=== PATIENT | male | born 1945 | race Caucasian/White ===

== ENCOUNTER 2016-07-02 19:49 | Inpatient (IN) | payer OTHER, MEDICARE ==
[~2016-07-02] VITALS: Ht 172.7 cm; Wt 138.3 kg
--- NOTE | 2016-07-02 20:07 | NUR ---
PT BIBA FROM HOME S/P SUDDEN ONSET OF WEAKNESS AT 630PM. PT WAS HAVING BACK PAIN AND CHEST TIGHTNESS AT THE TIME. HAD 6 EPISODES OF VOMITING WITH EMS, RECEIVED 4MG ZOFRAN BY THE MEDIC. PT HAS A HX OF A STABLE ANEURYSM AND HAD AN ECHO AND SAW HIS TELETYPE OPERATOR AND WAS TOLD EVERYTHING IS STILL GOOD. PT DENIES ANY PAIN RUNNING DOWN ANY EXTREMITY. PT NOTED TO BE VERY DIAPHORETIC UPON ARRIVAL, TEMP 102.0. PT NAUSEOUS WITH SOME VOMITING UPON ARRIVAL TO ER WELL. PTS RIGHT ARM BP 144/81, LT ARM BP 147/72, SINUS TACH ON CM WITH RATE IN 130'S. DENIES ANY ABD PAIN. PTS RA SAT 91% UPON ARRIVAL, RECEIVED A DUO NEB BY THE MEDIC, WHO STATES HIS SAT WAS 80% UPON THEIR ARRIVAL. PT PLACED ON 2L O2 VIA NC, AND SATS UP TO 95% IN ROOM AT THIS TIME. PT ALSO HAD EPISODE OF INCONTINCENCE OF URINE IN ROOM WELL.
--- NOTE | 2016-07-02 20:16 | NUR ---
SANJAY Dominguez TO [place].
[2016-07-02 20:24] LABS: ABSOLUTE BASOPHIL COUNT 0 /CUMM (0.0-0.2); ABSOLUTE EOSINOPHIL COUNT 0.2 /CUMM (0.0-0.7); ABSOLUTE GRANULOCYTE CT 20.6 /CUMM (1.4-6.5); ABSOLUTE LYMPH COUNT 1.6 /CUMM (1.2-3.4); ABSOLUTE MONOCYTE COUNT 0.2 /CUMM (0.10-0.60); BASOPHIL % 0.1 % (0.0-2.0); EOSINOPHIL % 0.9 % (0-5); HEMATOCRIT 45.7 % (42-52); MEAN CORPUSCULAR HGB 29.6 PG (27.0-31.0); MEAN CORPUSCULAR HGB CONC 33.3 G/DL (33.0-37.0); MEAN CORPUSCULAR VOLUME 88.9 FL (80.0-94.0); MEAN PLATELET VOLUME 8.4 FL (7.4-10.4); PLATELET COUNT 284 /CUMM (130-400); RBC DISTRIBUTION WIDTH 14.6 % (11.5-14.5); RED BLOOD CELL CT 5.13 /CUMM (4.70-6.10); WHITE BLOOD CELL COUNT 22.6 /CUMM (4.8-10.8)
[2016-07-02 20:25] LABS: GRANULOCYTE % 91.2 % (42.2-75.2)
[2016-07-02] MEDS ORDERED: TRESIBA FL200 UNIT/1 SC (20:30)
[2016-07-02] MEDS ORDERED: VICTOZA 3-0.6 MG/0.1 SC (20:31)
[2016-07-02] MEDS ORDERED: METFORMIN HCL1000 M1 PO (20:31)
[2016-07-02] MEDS ORDERED: LISINOPRIL40 M1 PO (20:31)
[2016-07-02] MEDS ORDERED: PRAVASTATIN SOD20 M2 PO (20:32)
[2016-07-02] MEDS ORDERED: FUROSEMIDE40 M1 PO (20:32)
[2016-07-02] MEDS ORDERED: METOPROLOL SUCC50 M2 PO (20:32)
[2016-07-02] MEDS ORDERED: OCUVITE EYE +1 EACH PO (20:33)
[2016-07-02] MEDS ORDERED: CYCLOBENZAPRINE10 M1 PO (20:33)
[2016-07-02] MEDS ORDERED: MONTELUKAST SOD10 M1 PO (20:34)
[2016-07-02] MEDS ORDERED: SYMBICORT 16010.2 GM INH (20:34)
[2016-07-02] MEDS ORDERED: AUGMENTIN XR 11 EACH PO (20:35)
[2016-07-02] MEDS ORDERED: VIAGRA100 M1 PO (20:35)
--- NOTE | 2016-07-02 20:35 | ED GENERAL ADULT ---
History of Present Illness General Chief Complaint: Dyspnea (COPD, CHF, Other) Stated Complaint: "BIBA PER EMS SHORTNESS OF BREATH,CHEST TIGHTNESS" Source: patient Exam Limitations: no limitations Vital Signs & Intake/Output Vital Signs & Intake/Output Vital Signs Date Time Temp Pulse Resp B/P Pulse O2 O2 Flow FiO2 Ox Delivery Rate 07/02 2309 100.3 07/02 2225 94 Nasal 4.0L Cannula 07/02 2127 102.0 121 20 121/63 97 Nasal 4.0L Cannula 07/02 2040 102.0 07/02 2024 95 Nasal 2.0L Cannula 07/02 1955 102.0 130 20 147/72 97 Nasal 2.0L Cannula ED Intake and Output 07/03 0000 07/02 1200 Intake Total 1000 Output Total Balance 1000 Intake, IV 1000 Allergies Coded Allergies: Penicillins (HIVES 07/02/16) Reconcile Medications Amoxicillin/Potassium Clav (Augmentin XR 1,000-62.5 Tab) 1,000 MG-62.5 MG TAB.ER.12H 1 TAB PO AD DENTAL WORK (Reported) with food Budesonide/Formoterol Fumarate (Symbicort 160-4.5 Mcg Inhaler) 160 MCG-4.5 MCG/ ACTUATION HFA.AER.AD 2 PUF INH BID ASTHMA (Reported) Cyclobenzaprine HCl 10 MG TABLET 1 TAB PO QPM PRN MUSCLE RELAXER (Reported) Furosemide 40 MG TABLET 1 TAB PO DAILY DIURETIC (Reported) Insulin Aspart, Recombinant (Novolog Flexpen) 100 UNIT/ML INSULN.PEN DM ( Reported) Insulin Degludec (Tresiba Flextouch U-200) 200 UNIT/ML (3 ML) INSULN.PEN 80 UNITS SC QAM DIABETES (Reported) Liraglutide (Victoza 3-Temo) 0.6 MG/0.1 ML (18 MG/3 ML) PEN.INJCTR 1.8 MG SC DAILY DM (Reported) Lisinopril 40 MG TABLET 1 TAB PO DAILY BP (Reported) Metformin HCl 1,000 MG TABLET 1 TAB PO BID GM (Reported) Metoprolol Succinate 50 MG TAB.ER.24H 1 TAB PO DAILY BP (Reported) Montelukast Sodium 10 MG TABLET 1 TAB PO DAILY ALLERGIES (Reported) Mv-Mn/FA/Vit K1/Lycop/Lut/Zeax (Ocuvite Eye + Multi Tablet) 200 MCG-15 MCG-150 MCG-5 MG-1 MG TABLET 1 TAB PO DAILY SUPPLEMENT (Reported) Pravastatin Sodium 20 MG TABLET 1 TAB PO QPM CHOLESTEROL (Reported) Sildenafil Citrate (Viagra) 100 MG TABLET 1 TAB PO PRN ED (Reported) 1 hour before sexual activity Triage Note: PT BIBA FROM HOME S/P SUDDEN ONSET OF WEAKNESS AT 630PM. PT WAS HAVING BACK PAIN AND CHEST TIGHTNESS AT THE TIME. HAD 6 EPISODES OF VOMITING WITH EMS, RECEIVED 4MG ZOFRAN BY THE MEDIC. PT HAS A HX OF A STABLE ANEURYSM AND HAD AN ECHO AND SAW HIS BREWMASTER AND WAS TOLD EVERYTHING IS STILL GOOD. PT DENIES ANY PAIN RUNNING DOWN ANY EXTREMITY. PT NOTED TO BE VERY DIAPHORETIC UPON ARRIVAL, TEMP 102.0. PT NAUSEOUS WITH SOME VOMITING UPON ARRIVAL TO ER WELL. PTS RIGHT ARM BP 144/81, LT ARM BP 147/72, SINUS TACH ON CM WITH RATE IN 130'S. DENIES ANY ABD PAIN. PTS RA SAT 91% UPON ARRIVAL, RECEIVED A DUO NEB BY THE MEDIC, WHO STATES HIS SAT WAS 80% UPON THEIR ARRIVAL. PT PLACED ON 2L O2 VIA NC, AND SATS UP TO 95% IN ROOM AT THIS TIME. PT ALSO HAD EPISODE OF INCONTINCENCE OF URINE IN ROOM WELL. Triage Nurses Notes Reviewed? yes Onset: Abrupt Duration: constant Timing: recent history Severity: moderate Severity Numbers: 5 HPI: Patient is a 71-year-old male with a past medical history of asthma, kidney stones, cellulitis, obesity, diabetes type 2, hypertension, GERD, hyperlipidemia , known stable AAA- last ultrasound was in March showing unremarkable new changes, LOWER EXTREMITY peripheral edema currently on Lasix, who presents to the emergency room brought in by ambulance for a 45 minutes prior to arrival acute onset while at rest of shaky RIGOR chills, chest heaviness, shortness of breath and diaphoresis and low back pain. Patient was given nebulizer treatment in route. Patient does state that he's had a recent history of a three-day history of intermittent nonproductive cough made worse at night Patient denies any fever abdominal pain nausea vomiting. Patient does state his leg swelling has remained persistent in no new changes to report. Is compliant with his medications and denies any calf pain hemoptysis (PHILIP GRACE,GLO) Past History Travel History Traveled to [place] past 21 day No Medical History Any Pertinent Medical History? see below for history Cardiovascular: aortic aneurysm, hypertension, hyperlipidemia Respiratory: asthma Renal: KIDNEY STONES Endocrine: diabetes History of MRSA: No History of VRE: No History of CDIFF: No Pneumonia Vaccine: 04/27/09 Influenza Vaccine: 03/31/12 Surgical History Surgical History: non-contributory Psychosocial History Who do you live with Family Services at Home None What is your primary language Turkmen Tobacco Use: Quit >30 days ago Family History Family History, If Any: MOTHER FH: CHF (congestive heart failure) FH: diabetes mellitus FHx: breast cancer FHx: kidney cancer FATHER FH: CHF (congestive heart failure) Relation not specified for: FH: diabetes mellitus Hx Contributory? No (GLO MAY) Review of Systems Review of Systems Constitutional: Reports: see HPI, chills. EENTM: Reports: no symptoms. Respiratory: Reports: see HPI, short of breath. Cardiovascular: Reports: see HPI, chest pain. GI: Reports: see HPI. Denies: abdominal pain. Genitourinary: Reports: no symptoms, see HPI. Denies: dysuria, frequency. Musculoskeletal: Reports: see HPI, back pain. Skin: Reports: no symptoms. Neurological/Psychological: Reports: no symptoms. Hematologic/Endocrine: Reports: no symptoms. Immunologic/Allergic: Reports: no symptoms. All Other Systems: Reviewed and Negative (GLO MAY) Physical Exam Physical Exam General Appearance: mild distress, obese Comments: HEENT: Normal EENT exam, extraocular motion intact, no nystagmus. Pupils equally round and reactive to light and accommodation. Nose is atraumatic. External auditory canal and Tympanic membranes clear. Pharynx normal. No swelling or edema. Neck: Supple, no lymphadenopathy, normal range of motion without pain or tenderness Back: Bilateral para lumbar low back tenderness no central spinous tenderness no CVA tenderness. Cardiovascular: TACHYCARDIA, no murmurs rubs or gallops, normal JVP Respiratory: Chest nontender. No respiratory distress.breath sounds clear to auscultation bilaterally Abdomen: Soft, nontender nondistended, no appreciable organomegaly. Normal bowel sounds. No ascites Extremity: +3 bilateral lower extremity pitting edema no calf tenderness to palpation, normal and equal pulses. Neuro: Alert oriented x3, motor sensory normal, Skin: No appreciable rash on exposed skin, skin is warm and dry. Psych: Mood and affect is normal, memory and judgment is normal. Core Measures ACS in differential dx? Yes CVA/TIA Diagnosis: No Severe Sepsis Present: Yes BC x2: Yes Lactic Acid x2: Yes IV ABX Broad Spectrum: Yes NS/LR Started: Yes Septic Shock Present: No (PHILIP GRACE,GLO) Physical Exam Rectal: pt with exquisitely tender prostate to palpation. (LETTY ARTEAGA,ROMAN Leon) Progress Differential Diagnoses I considered the following diagnoses in my evaluation of the patient: [Sepsis, aortic aneurysm, aortic dissection, PE, pneumonia, pyelonephritis, mesenteric ischemia,] Plan of Care: Orders Procedure Date/time Status Patient Data 07/03 0000 Active LACTIC ACID 07/02 2315 Complete CULTURE,URINE 07/02 2242 Active URINALYSIS 07/02 2242 Complete US-EXT BILAT VENOUS DOPPLER 07/02 2150 Active Add-on Test (ER Only) 07/02 2030 Active RAPID VIRAL INFLUENZA A 07/02 2030 Active BLOOD CULTURE 07/02 2015 Active TROPONIN LEVEL 07/02 2015 Complete PARTIAL THROMBOPLASTIN TIME 07/02 2015 Complete PROTHROMBIN TIME 07/02 2015 Complete LIPASE 07/02 2015 Complete LACTIC ACID 07/02 2015 Complete COMPREHENSIVE METABOLIC PANEL 07/02 2015 Complete CBC WITHOUT DIFFERENTIAL 07/02 2015 Complete AMYLASE 07/02 2015 Complete D-DIMER 07/02 2009 Complete EKG 07/02 2001 Active Laboratory Tests 07/02/165: Lactic Acid 3.5 H 07/02/165: Urine Color YEL, Urine Clarity CLEAR, Urine pH 6.0, Ur Specific [place] 1.015, Urine Protein NEG, Urine Ketones NEG, Urine Nitrite NEG, Urine Bilirubin NEG, Urine Urobilinogen 0.2, Ur Leukocyte Esterase NEG, Ur Microscopic SEDIMENT EXAMINED, Urine RBC 1-3, Urine WBC RARE, Ur Epithelial Cells RARE, Urine Hemoglobin TRACE-LYSED H, Urine Glucose 500 H 07/02/162009: Anion Gap 16, Estimated GFR > 60, BUN/Creatinine Ratio 32.2 H, Glucose 314 H, Lactic Acid 4.5 H, Calcium 9.4, Total Bilirubin 0.6, AST 53, ALT 47, Alkaline Phosphatase 82, Troponin I < 0.01, Total Protein 7.9, Albumin 4.3, Globulin 3.6, Albumin/Globulin Ratio 1.2, Amylase 71, Lipase 414 H, PT 11.7, INR 1.12, APTT 23 L, D-Dimer 358 H, CBC w Diff MAN DIFF ORDERED, RBC 5.13, MCV 88.9, MCH 29.6 , RDW 14.6 H, MPV 8.4, Gran % 91.2 H, Lymphocytes % 6.9 L, Monocytes % 0.9 L , Eosinophils % 0.9, Basophils % 0.1, Absolute Granulocytes 20.6 H, Segmented Neutrophils 86 H, Band Neutrophils 5, Absolute Lymphocytes 1.6, Lymphocytes 5 L, Monocytes 1 L, Absolute Monocytes 0.2, Eosinophils 2, Absolute Eosinophils 0.2, Basophils 1, Absolute Basophils 0, Platelet Estimate VERIFIED BY SMEAR, Normocytic RBCs VERIFIED, Normochromic RBCs VERIFIED, PUBS MCHC 33.3, Fld Total RBCs Counted 100 Microbiology 07/02 2244 URINE ROUT: Urine Culture - RECD 07/02 2038 BLOOD: Blood Culture - RECD 07/02 2009 BLOOD: Blood Culture - RECD Upon initial examination patient noted to be febrile and patient had a elevated white blood cell count and which my concerns were sepsis at this time. Patient' s blood pressure was stable however due to patient's significant lower extremity swelling that I was hesitant on fluid resuscitation per [facility] policy due to significant peripheral edema and I did not want to fluid overload the patient. Patient was given 1 L of IV fluid resuscitation and IV acetaminophen however fever still persisted with ketorolac will be administered. Patient has unremarkable CT angiogram and unremarkable urine at this time there is no source of patient's infection. Patient initially was given azithromycin and Rocephin for prophylactic treatment. Blood cultures and urine cultures currently pending. Patient currently is in no apparent distress. I discussed handoff with Dr. Kim who will admit patient (PHILIP GRACE,GLO) Diagnostic Imaging: Viewed by Me: CT Scan. Discussed w/RAD: CT Scan. Radiology Impression: SEE COMMENTS Initial ED EK BPM, NSR Hand-Off Endorsed To: LETTY ARTEAGA,ROMAN Leon Comments: PATIENT: GLO MEYERS PRESENT AGE: 71 PATIENT ACCOUNT NO: [id number] : 45 LOCATION: [facility] ORDERING PHYSICIAN: GLO GRACE SERVICE DATE: 07/02/16 EXAM TYPE: CAT - CT ABD ANGIOGRAM; CTA CHEST-AORTIC DISSECTION EXAMINATION: CTA CHEST-AORTIC DISSECTION, CT ABD ANGIOGRAM CLINICAL INFORMATION: None AAA. Patient complains of chest "heaviness" radiating to the back. COMPARISON: None recent TECHNIQUE: Initial noncontrast enhanced axial scans of the chest were obtained per aortic dissection protocol. Following this, axial scans were obtained for timing purposes. This was followed by serial axial scans for CT angiography of the chest and abdomen. Coronal and sagittal reformats obtained at the acquisition workstation. DLP 1662 mGy-cm. FINDINGS: VASCULAR: Both pre and postcontrast exams of the chest reveal no evidence of aortic dissection. The thoracic aorta is normal in caliber. There is conventional branching off the aortic arch. Calcific plaques are seen in the abdominal aorta but there is no evidence of AAA. There is only mild tortuosity. Major branch vessels show ostial calcifications but all are patent. Both renal arteries show early bifurcation particularly in the left side. The iliac arteries as visualized are normal. NONVASCULAR: Numerous pulmonary nodules are present within both lungs. Some of these nodules contain calcium. Nodules are present in both lower lobes, right middle lobe, and both upper lobes. These nodules vary in size. The largest approaches 9 - [address] mm[address] performed on January 2011 mentioned the same nodules and their stability going back to 2008. None of the nodules have particularly suspicious characteristics. There is mild dependent atelectasis of both lower lobes. Multiple subcentimeter lymph nodes are present in the mediastinum including AP window, paratracheal space, and precarinal space. Coronary artery calcifications are present. There are small bilateral hilar lymph nodes. The axillae are clear of adenopathy. There is a hiatal hernia. The liver is normal in size but shows diffuse fatty infiltration. No focal masses are seen. The gallbladder and bile ducts are normal. The pancreas is normal as is the spleen and both adrenal glands. Neither kidney shows evidence of stone formation. Chronic perinephric stranding is present. There is grade 1 hydronephrosis of both kidneys and moderate fullness of both ureters. Note that the pelvis was not included on this exam. The stomach, small and large bowel are normal as visualized. There are no suspicious osseous lesions. IMPRESSION: 1. No evidence of aortic dissection. 2. No evidence of aortic aneurysm. 3. Fatty liver. 4. Mild bilateral hydroureteronephrosis. 5. Numerous pulmonary nodules varying in size. The largest measure 9 to 10 mm. These were mentioned on prior reports. (GLO MAY) Departure Departure Disposition: STILL A PATIENT Condition: Fair Referrals: KEENAN NIELSEN MD (PCP/Family) Referred to [facility] as new patient No Departure Forms: Customer Survey General Discharge Information (GLO MAY) Departure Clinical Impression Primary Impression: Sepsis Secondary Impressions: Chest pain, Fever, Leukocytosis, Prostatitis Admission Note Spoke With: KEENAN NIELSEN MD Documentation of Exam: Documentation of any treatments & extenuating circumstances including Concerns Regarding Discharge (functional status, medication knowledge or non-compliance, living conditions, etc.) that warrant an admission rather than observation: pt with sepsis, likely source is prostate... vitals stable... broad spectrum antibiotics given... pt stable in Ed x 4 hours... stable for gen med (LETTY ARTEAGA,ROMAN Leon) Critical Care Note Critical Care Note Critical Care Time: 30-74 min (GLO MAY)
[2016-07-02] MEDS ORDERED: NOVOLOG FL100 UNIT/1 SC (20:36)
--- NOTE | 2016-07-02 20:41 | NUR ---
NS INFUSING, MEDICATED WITH SOLUMEDROL, AND IV TYLENOL INFUSING (SEE MAR)
[2016-07-02 20:45] LABS: PT 11.7 SEC (9.4-12.5); PTT 23 SEC (25-37)
--- NOTE | 2016-07-02 20:53 | NUR ---
CRITICAL TEST RESULTS [id number] GLO MEYERS 71 M TESTS AND RESULTS: LACTIC 4.5 Results received and read back by: ANNABELLE OSULLIVAN Results received date and time: 07/02/162053 The following provider was notified of the results, and read the results back: SANJAY PALACIOS Notified date and time: 07/02/16 at 2054
--- NOTE | 2016-07-02 21:25 | NUR ---
PT TO AND FROM CAT.
--- NOTE | 2016-07-02 21:29 | NUR ---
PATIENT BACK FROM CAT SCAN
--- NOTE | 2016-07-02 22:38 | CT SCAN REPORT ---
EXAMINATION: CTA CHEST-AORTIC DISSECTION, CT ABD ANGIOGRAM CLINICAL INFORMATION: None AAA. Patient complains of chest "heaviness" radiating to the back. COMPARISON: None recent TECHNIQUE: Initial noncontrast enhanced axial scans of the chest were obtained per aortic dissection protocol. Following this, axial scans were obtained for timing purposes. This was followed by serial axial scans for CT angiography of the chest and abdomen. Coronal and sagittal reformats obtained at the acquisition workstation. DLP 1662 mGy-cm. FINDINGS: VASCULAR: Both pre and postcontrast exams of the chest reveal no evidence of aortic dissection. The thoracic aorta is normal in caliber. There is conventional branching off the aortic arch. Calcific plaques are seen in the abdominal aorta but there is no evidence of AAA. There is only mild tortuosity. Major branch vessels show ostial calcifications but all are patent. Both renal arteries show early bifurcation particularly in the left side. The iliac arteries as visualized are normal. NONVASCULAR: Numerous pulmonary nodules are present within both lungs. Some of these nodules contain calcium. Nodules are present in both lower lobes, right middle lobe, and both upper lobes. These nodules vary in size. The largest approaches 9 - [address] mm[address] performed on January 2011 mentioned the same nodules and their stability going back to 2008. None of the nodules have particularly suspicious characteristics. There is mild dependent atelectasis of both lower lobes. Multiple subcentimeter lymph nodes are present in the mediastinum including AP window, paratracheal space, and precarinal space. Coronary artery calcifications are present. There are small bilateral hilar lymph nodes. The axillae are clear of adenopathy. There is a hiatal hernia. The liver is normal in size but shows diffuse fatty infiltration. No focal masses are seen. The gallbladder and bile ducts are normal. The pancreas is normal as is the spleen and both adrenal glands. Neither kidney shows evidence of stone formation. Chronic perinephric stranding is present. There is grade 1 hydronephrosis of both kidneys and moderate fullness of both ureters. Note that the pelvis was not included on this exam. The stomach, small and large bowel are normal as visualized. There are no suspicious osseous lesions. IMPRESSION: 1. No evidence of aortic dissection. 2. No evidence of aortic aneurysm. 3. Fatty liver. 4. Mild bilateral hydroureteronephrosis. 5. Numerous pulmonary nodules varying in size. The largest measure 9 to 10 mm. These were mentioned on prior reports.
--- NOTE | 2016-07-02 22:57 | NUR ---
URINE SENT TO LAB.
--- NOTE | 2016-07-02 23:16 | NUR ---
REPEAT LACTIC SENT TO LAB.
--- NOTE | 2016-07-02 23:44 | NUR ---
CRITICAL TEST RESULTS [id number] GLO MEYERS 71 M TESTS AND RESULTS: LACTIC ACID 3.5 Results received and read back by: KRISTIN CARABALLO Results received date and time: 07/02/16 3644 The following provider was notified of the results, and read the results back: GLO GRACE Notified date and time: 07/02/16 at 5949
--- NOTE | 2016-07-03 00:41 | NUR ---
CURRENT TEMP 99.1
--- NOTE | 2016-07-03 01:40 | NUR ---
NS INITIATED AT 100ML/HR PER EMAR. TOLERATING WELL. PATIENT AND FAMILY INFORMED WAITING FOR ADMISSION PROCESS/ ROOM ASSIGNMENT. PATIENT PROVIDED ADDITIONAL LEMON GLYCERINE MOUTH SWABS PER REQUEST.
--- NOTE | 2016-07-03 01:46 | NUR ---
PT ADMIT TO GEN MED RM [id number]
--- NOTE | 2016-07-03 02:00 | NUR ---
PATIENT AND FAMILY INFORMED WAITING AGAIN FOR ADMISSION PROCESS AND ROOM ASSIGNMENT.
--- NOTE | 2016-07-03 02:35 | NUR ---
PATIENT AND SPOUSE INFORMED WAITING AGAIN FOR ADMISSION PROCRESS AT THIS TIME.
--- NOTE | 2016-07-03 02:57 | NUR ---
THIS RN TRIED TO CALL AND GIVE REPORT TO [facility] FOR THE PT GOING TO RM 235 AND I WAS TOLD TO CALL BACK
--- NOTE | 2016-07-03 03:10 | NUR ---
THIS RN TRIED TO CALL AND GIVE REPORT AGAIN SINCE THE BED WAS ASSIGNED AT 0145. THE FLOOR SAID THEY NEED MORE TIME AND WILL CALL BACK.
--- NOTE | 2016-07-03 03:11 | History & Physical ---
General Information and HPI MD Statement: I have seen and personally examined GLO MEYERS and documented this H&P. The patient is a 71 year old M who presented with a patient stated chief complaint of [fever and chills]. Source of Information: patient, family Exam Limitations: no limitations History of Present Illness: Patient is a 71-year-old male with past medical history of asthma, diabetes mellitus, renal stones status post lithotripsy, hypertension, hyperlipidemia, thoracic aorta aneurysm(stable), peripheral vascular disease presented to the ED today with chief complaint of sudden onset of fever and chills this afternoon accompanied by shortness of breath, diaphoresis and low back pain. Patient states that he was in his usual health until this afternoon when he suddenly started having fever and chills at home. He was nauseous and diaphoretic. By states that he was very uncomfortable and started using his nebulizer medications with no relief. His symptoms were similar to the time when he had renal stones. He denied any abdominal pain, vomiting, chest pain, palpitations, urinary or bowel symptoms. He did have some mild shortness of breath and received nebulizer treatment en route to the hospital. Denied any recent travel, recent sick contacts. Follows up with Dr. Croft as an outpatient. Vitals on arrival temperature 102, pulse 1:30, respiration 20, blood pressure 147/72, saturating 97% on nasal cannula. Pertinent labs showed a white count of 22.6 with a left shift, H&H of 15.2 /45.7 , sodium 135, potassium 4.3, lactic acid 4.5(improved to 3.5 with hydration), troponins negative, lipase 414, d-dimer 358. UA showed no infection but a glucose level of 500 JOSE DANIEL: Exquisitely tender and enlarged prostate on examination. EKG was sinus tach at 100 bpm, right bundle branch block(old), QTC 460. CTA:1. No evidence of aortic dissection. 2. No evidence of aortic aneurysm. 3. Fatty liver. 4. Mild bilateral hydroureteronephrosis. 5. Numerous pulmonary nodules varying in size. The largest measure 9 to 10 mm. These were mentioned on prior reports. Allergies/Medications Allergies: Coded Allergies: Penicillins (HIVES 07/02/16) Home Med list Amoxicillin/Potassium Clav (Augmentin XR 1,000-62.5 Tab) 1,000 MG-62.5 MG TAB.ER.12H 1 TAB PO AD DENTAL WORK (Reported) with food Budesonide/Formoterol Fumarate (Symbicort 160-4.5 Mcg Inhaler) 160 MCG-4.5 MCG/ ACTUATION HFA.AER.AD 2 PUF INH BID ASTHMA (Reported) Cyclobenzaprine HCl 10 MG TABLET 1 TAB PO QPM PRN MUSCLE RELAXER (Reported) Furosemide 40 MG TABLET 1 TAB PO DAILY DIURETIC (Reported) Insulin Aspart, Recombinant (Novolog Flexpen) 100 UNIT/ML INSULN.PEN DM ( Reported) Insulin Degludec (Tresiba Flextouch U-200) 200 UNIT/ML (3 ML) INSULN.PEN 80 UNITS SC QAM DIABETES (Reported) Liraglutide (Victoza 3-Temo) 0.6 MG/0.1 ML (18 MG/3 ML) PEN.INJCTR 1.8 MG SC DAILY DM (Reported) Lisinopril 40 MG TABLET 1 TAB PO DAILY BP (Reported) Metformin HCl 1,000 MG TABLET 1 TAB PO BID GM (Reported) Metoprolol Succinate 50 MG TAB.ER.24H 1 TAB PO DAILY BP (Reported) Montelukast Sodium 10 MG TABLET 1 TAB PO DAILY ALLERGIES (Reported) Mv-Mn/FA/Vit K1/Lycop/Lut/Zeax (Ocuvite Eye + Multi Tablet) 200 MCG-15 MCG-150 MCG-5 MG-1 MG TABLET 1 TAB PO DAILY SUPPLEMENT (Reported) Pravastatin Sodium 20 MG TABLET 1 TAB PO QPM CHOLESTEROL (Reported) Sildenafil Citrate (Viagra) 100 MG TABLET 1 TAB PO PRN ED (Reported) 1 hour before sexual activity Past History Travel History Traveled to [place] past 21 day No Medical History Cardiovascular: aortic aneurysm, hypertension, hyperlipidemia Respiratory: asthma Renal: KIDNEY STONES Endocrine: diabetes History of MRSA: No History of VRE: No History of CDIFF: No Pneumonia Vaccine: 04/27/09 Influenza Vaccine: 03/31/12 Surgical History Surgical History: non-contributory Past Family/Social History Family History Relations & Conditions if any MOTHER FH: CHF (congestive heart failure) FH: diabetes mellitus FHx: breast cancer FHx: kidney cancer FATHER FH: CHF (congestive heart failure) Relation not specified for: FH: diabetes mellitus Psychosocial History Services at Home: None Review of Systems Review of Systems Constitutional: Reports: chills, fever, malaise, weakness. EENTM: Reports: no symptoms. Cardiovascular: Reports: no symptoms. Respiratory: Reports: short of breath. GI: Reports: no symptoms. Genitourinary: Reports: no symptoms. Skin: Reports: no symptoms. Neurological/Psychological: Reports: no symptoms. Hematologic/Endocrine: Reports: no symptoms. Exam & Diagnostic Data Last 24 Hrs of Vital Signs/I&O Vital Signs Date Time Temp Pulse Resp B/P Pulse O2 O2 Flow FiO2 Ox Delivery Rate 07/03 0243 96.8 105 18 110/65 95 Room Air 07/03 0042 99.1 108 18 109/63 94 Room Air 07/03 0041 99.1 07/02 2310 100.3 07/02 2226 94 Nasal 4.0L Cannula 07/02 2127 102.0 121 20 121/63 97 Nasal 4.0L Cannula 07/02 2040 102.0 07/02 2024 95 Nasal 2.0L Cannula 07/02 1955 102.0 130 20 147/72 97 Nasal 2.0L Cannula Intake & Output 07/03 0800 07/03 0000 07/02 1600 Intake Total 1000 Output Total Balance 1000 Intake, IV 1000 Physical Exam General Appearance Alert, Oriented X3, Cooperative, Mild Distress Skin No Rashes, No Breakdown, No Significant Lesion, scar midline in the abdomen HEENT Atraumatic, PERRLA, EOMI Neck Supple, No JVD Lymphatic Cervical nl Cardiovascular Normal S1, Normal S2, tachycardia Lungs Clear to Auscultation, Normal Air Movement Abdomen Normal Bowel Sounds, Soft, No Tenderness, distended, no CVA tenderness Neurological Normal Gait, Normal Speech, Strength at 5/5 X4 Ext, Normal Tone Extremities right LE VENOUS STATIS CHANGES. 2 + PEDAL EDEMA BILATERALLY Last 24 Hrs of Labs/Andrea: Laboratory Tests 07/02/16 2315: Lactic Acid 3.5 H 07/02/165: Urine Color YEL, Urine Clarity CLEAR, Urine pH 6.0, Ur Specific [place] 1.015, Urine Protein NEG, Urine Ketones NEG, Urine Nitrite NEG, Urine Bilirubin NEG, Urine Urobilinogen 0.2, Ur Leukocyte Esterase NEG, Ur Microscopic SEDIMENT EXAMINED, Urine RBC 1-3, Urine WBC RARE, Ur Epithelial Cells RARE, Urine Hemoglobin TRACE-LYSED H, Urine Glucose 500 H 07/02/162009: Anion Gap 16, Estimated GFR > 60, BUN/Creatinine Ratio 32.2 H, Glucose 314 H, Lactic Acid 4.5 H, Calcium 9.4, Total Bilirubin 0.6, AST 53, ALT 47, Alkaline Phosphatase 82, Troponin I < 0.01, Total Protein 7.9, Albumin 4.3, Globulin 3.6, Albumin/Globulin Ratio 1.2, Amylase 71, Lipase 414 H, PT 11.7, INR 1.12, APTT 23 L, D-Dimer 358 H, CBC w Diff MAN DIFF ORDERED, RBC 5.13, MCV 88.9, MCH 29.6 , RDW 14.6 H, MPV 8.4, Gran % 91.2 H, Lymphocytes % 6.9 L, Monocytes % 0.9 L , Eosinophils % 0.9, Basophils % 0.1, Absolute Granulocytes 20.6 H, Segmented Neutrophils 86 H, Band Neutrophils 5, Absolute Lymphocytes 1.6, Lymphocytes 5 L, Monocytes 1 L, Absolute Monocytes 0.2, Eosinophils 2, Absolute Eosinophils 0.2, Basophils 1, Absolute Basophils 0, Platelet Estimate VERIFIED BY SMEAR, Normocytic RBCs VERIFIED, Normochromic RBCs VERIFIED, PUBS MCHC 33.3, Fld Total RBCs Counted 100 Microbiology 07/03 0105 URINE ROUT: Urine Culture - ORD 07/025 URINE ROUT: Urine Culture - RECD 07/02 2038 BLOOD: Blood Culture - RECD 07/02 2009 BLOOD: Blood Culture - RECD Assessment/Plan Assessment: Patient is a 71-year-old male with past medical history of asthma, diabetes mellitus, renal stones status post lithotripsy, hypertension, hyperlipidemia, thoracic aorta aneurysm(stable), peripheral vascular disease presented to the ED today with chief complaint of sudden onset of fever and chills this afternoon accompanied by shortness of breath, diaphoresis and low back pain. Vitals on arrival temperature 102, pulse 1:30, respiration 20, blood pressure 147/72, saturating 97% on nasal cannula. Pertinent labs showed a white count of 22.6 with a left shift, H&H of 15.2 /45.7 , sodium 135, potassium 4.3, lactic acid 4.5(improved to 3.5 with hydration), troponins negative, lipase 414, d-dimer 358. UA showed no infection but a glucose level of 500 JOSE DANIEL: Exquisitely tender and enlarged prostate on examination. EKG was sinus tach at 100 bpm, right bundle branch block(old), QTC 460. CTA:1. No evidence of aortic dissection. 2. No evidence of aortic aneurysm. 3. Fatty liver. 4. Mild bilateral hydroureteronephrosis. 5. Numerous pulmonary nodules varying in size. The largest measure 9 to 10 mm. These were mentioned on prior reports. Plan: 1.Sepsis secondary to ? acute prostatitis Vs Urological: With fever, tachycardia , leukocytosis with bandemia with painful prostate on digital examination. No evidence on stone on CT, chronic perinephric stranding and kidneys present. Mild bilateral hydronephrosis seen on CAT scan. Elevated lactic acid levels. -We'll admit patient to [facility] -Aggressive hydration with IV normal saline at 100 mL an hour. Patient received 2 L bolus in the ED -Patient received IV ceftriaxone in the ED. We will continues the same for now pending culture and sensitivity. -Send pancultures. -Trend lactate levels -Place Gibbs if patient starts retaining urine. At this time patient is voiding appropriately. -Pain/fever control with IV Morphine and IV Tylenol -We will keep patient nothing by mouth pending a procedures in a.m. -Urology consult with Dr. Croft in a.m. 2. Acute onset of shortness of breath: Differentials for PE versus asthma exacerbation. No PE seen on CTA. No evidence of pneumonia. No history of heart failure. -Keep oxygen saturations above 92% -[facility] nebs [id number] -Solu-Medrol 40 every 8 hours -Continue Symbicort -Pancultures pending -3 sets of troponin/EKG to rule out ACS -Check proBNP -Echocardiogram. 3. Cellulitis: Right foot cellulitis, chronic. Likely secondary to venous stasis. -leg elevation. -Compression stockings -c/w lasix for pedal edema. -Patient is pending vascular procedure -Check right lower extremity Doppler to rule out DVT. .4. History of renal stones -s/p lithotripsy x2 -f/u urology recommendations 5. Diabetes mellitus -3 times a day accuchecks -novolog sliding scale -Levemer 20 BID (half home dose) -Diabetic diet. 6. Essential hypertension c/w metoprolol, lisinopril and Lasix. 8. Arthritis -c/w Tramadol & muscle relaxant. Diabetic diet Full code Severe pain pathway DVT prophylaxis subcutaneous Lovenox As Ranked By This Provider Problem List: 1. Diabetes mellitus 2. Asthma 3. Hyperlipidemia 4. Leukocytosis 5. Fever 6. Cellulitis 7. Sepsis 8. Prostatitis Core Measures/Miscellaneous Acute Coronary Syndrome ACS Diagnosis: No Cerebrovascular Accident CVA/TIA Diagnosis: No Congestive Heart Failure CHF Diagnosis: No Venous Thromboembolism VTE Risk Factors: Age > 40, Obesity VTE Prophylaxis Ordered Inpt: Mechanical (ALPS/TEDS) No Mech VTE prophylaxis d/t: No contraindications No VTE Pharm Prophylaxis d/t: No contraindications VTE Diagnosis: No VTE Type: NONE VTE Confirmed by (Test): NONE Severe Sepsis Severe Sepsis Present: Yes BC x2: Yes Lactic Acid x2: Yes IV ABX Broad Spectrum: Yes NS/LR Started: Yes Septic Shock Septic Shock Present: No Miscellaneous Documentation Attending Case Discussed With: KEENAN NIELSEN MD Primary Care Physician: KEENAN NIELSEN MD Patient sees these Specialists DR TRACY Level of Patient Care: General Medicine
--- NOTE | 2016-07-03 03:38 | NUR ---
REPORT CALLED TO JENIFFER MORTENSEN ON . HOUSE STAFF PAGED TO INQUIRE ABOUT MCCURDY CATHETER ORDER.
--- NOTE | 2016-07-03 03:43 | NUR ---
PATIENT FAMILY UPSET REGARDING TIME TO BRING PATIENT TO ROOM UPSTAIRS, PATIENT AND FAMILY INFORMED THAT REPORT HAS BEEN GIVEN. ALL ORDER HAVE BEEN CLARIFIED W/ ADMITTING MDS. REFUSING FLU SWAB, HOUSE STAFF REPORTING D/CING ORDER. PER HOUSE STAFF REGARDING MCCURDY ORDER, HOUSE STAFF REPORTS TO BLADDER SCAN THE PATIENT AND IF THE BLADDER SCANNER READS MORE THAN 300ML RETAINED THAN PLACE THE MCCURDY, IF NOT THAN DO NOT PLACE MCCURDY. FAMILY AWARE THAT BLADDER SCAN NEEDS TO BE OBTAINED FROM ICU, REFUSING TO WAIT, WOULD LIKE TO BE TRANSPORTED TO FLOOR AND THEN HAVE THE BLADDER SCAN DONE. JENIFFER MORTENSEN ON FLOOR AWARE. HOUSE STAFF ALSO MADE AWARE OF LACTIC ORDERS FOR 0300 AND 0354, PER HOUSE STAFF, ONLY NEED TO OBTAIN ONE LACTIC ACID AND THE OTHER ORDER WILL BE D/SIDDHARTH. FAMILY VERY UPSET, VERBALLY DEESCALATED AT THIS TIME. ELIOT QUINTERO AT BEDSIDE OBTAINING LACTIC ACID AT THIS TIME THEN PATIENT WILL BE TRANSPORTED TO FLOOR. HOUSE STAFF THIS RN SPOKE TO- HERMILA MALDONADO (BEEPER [id number]).
[2016-07-03 04:28] VITALS: BP 110/70
[2016-07-03 07:37] VITALS: BP 120/76
--- NOTE | 2016-07-03 08:11 | NUR ---
PT ARRIVED TO FLOOR AT 0421 VIA STRETCHER. A&OX3, ON RA LUNGS CLEAR, IV TO RFA #20 FROM 07/02/16 WITH NS @100ML/HR, VSS, NO C/O NAUSEA/VOMITTING OR PAIN. RT LOWER EXTREMITY ERYTHEMA +2 EDEMA, AMBULATED INDEPENDENTLY. VOIDS TO URINAL POST VOID RESIDUAL 20ML. PT NPO FOR POSSIBLE UROLOGY PROCEDURE, ORIENTED TO ROOM AND STAFF, CALL SYED HAMM. WILL CONTINUE TO MONITOR.
--- NOTE | 2016-07-03 10:21 | Admission Certification ---
Admission Certification Certification Statement - As attending physician, I certify that at the time of - admission, based on clinical presentation, severity of - symptoms, need for further diagnostic testing and - therapeutic interventions, and risk of adverse outcomes - without in-hospital treatment, in my clinical assessment, - this patient requires an acute hospital stay for a minimum - of two nights or longer. I have also considered psychsocial - factors such as support system, advanced age, financial - issues, cognitive issues, and failed out-patient treatments, - past re-admission history, safety of patient, and lack of - compliance as applicable. Specific rationale supporting this admission is: Shaking chills , sepsis probable origin is the prostate.
--- NOTE | 2016-07-03 10:24 | PN- Att Addend ---
Attending Addendum Attending Brief Note 71-year-old white male with many comorbidities 1 of them is diabetes, last evening started having severe shaking chills, called the ambulance was brought into the emergency room with a fever patient had all the cultures obtained lab work x-rays and scans and rectal exam the prostate was very tender urine was started on IV antibiotics and also his lactic acid was elevated. Patient was admitted. This morning lab called that to cultures positive for gram-positive organisms. Will obtain an infectious disease consult also urology follow-up with monitor his sugars closely Laboratory Tests 07/03 07/03 07/03 07/02 0941 [id number] 0354 2315 Chemistry Lactic Acid (0.7 - 2.1 mmol/L) Pending 4.8 H Cancelled 3.5 H Hematology CBC w Diff Pending WBC Pending RBC Pending Hgb Pending Hct Pending MCV Pending MCH Pending RDW Pending Plt Count Pending MPV Pending PUBS MCHC Pending 07/02 2255 Urines Urine Color (YEL,AMB,STR) YEL Urine Clarity (CLEAR) CLEAR Urine pH (5.0 - 8.0) 6.0 Ur Specific [place] (1.001 - 1.035) 1.015 Urine Protein (NEG,<30 MG/DL) NEG Urine Ketones (NEG) NEG Urine Nitrite (NEG) NEG Urine Bilirubin (NEG) NEG Urine Urobilinogen (0.1 - 1.0 EU/dl) 0.2 Ur Leukocyte Esterase (NEG) NEG Ur Microscopic SEDIMENT EXAMINED Urine RBC (0 - 5 /HPF) 1-3 Urine WBC (0 - 2 /HPF) RARE Ur Epithelial Cells (NONE,FEW) RARE Urine Hemoglobin (NEG) TRACE-LYSED H Urine Glucose (N MG/DL) 500 H 07/02 2009 Chemistry Sodium (137 - 145 mmol/L) 135 L Potassium (3.5 - 5.1 mmol/L) 4.3 Chloride (98 - 107 mmol/L) 93 L Carbon Dioxide (22 - 30 mmol/L) 26 Anion Gap (5 - 16) 16 BUN (9 - 20 mg/dL) 29 H Creatinine (0.7 - 1.2 mg/dL) 0.9 Estimated GFR (>60 ml/min) > 60 BUN/Creatinine Ratio (7 - 25 %) 32.2 H Glucose (65 - 99 mg/dL) 314 H Lactic Acid (0.7 - 2.1 mmol/L) 4.5 H Calcium (8.4 - 10.2 mg/dL) 9.4 Total Bilirubin (0.2 - 1.3 mg/dL) 0.6 AST (17 - 59 U/L) 53 ALT (21 - 72 U/L) 47 Alkaline Phosphatase (< 127 U/L) 82 Troponin I (<0.11 ng/ml) < 0.01 Qxg-C-Efkrjziylce Pept (<125 pg/mL) 59.4 Total Protein (6.3 - 8.2 g/dL) 7.9 Albumin (3.5 - 5.0 g/dL) 4.3 Globulin (1.9 - 4.2 gm/dL) 3.6 Albumin/Globulin Ratio (1.1 - 2.2 %) 1.2 Amylase (30 - 110 U/L) 71 Lipase (23 - 300 U/L) 414 H Coagulation PT (9.4 - 12.5 SEC) 11.7 INR (0.90 - 1.17) 1.12 APTT (25 - 37 SEC) 23 L D-Dimer (70 - 232 ng/ml) 358 H Hematology CBC w Diff MAN DIFF ORDERED WBC (4.8 - 10.8 /CUMM) 22.6 H RBC (4.70 - 6.10 /CUMM) 5.13 Hgb (14.0 - 18.0 G/DL) 15.2 Hct (42 - 52 %) 45.7 MCV (80.0 - 94.0 FL) 88.9 MCH (27.0 - 31.0 PG) 29.6 RDW (11.5 - 14.5 %) 14.6 H Plt Count (130 - 400 /CUMM) 284 MPV (7.4 - 10.4 FL) 8.4 Gran % (42.2 - 75.2 %) 91.2 H Lymphocytes % (20.5 - 51.1 %) 6.9 L Monocytes % (1.7 - 9.3 %) 0.9 L Eosinophils % (0 - 5 %) 0.9 Basophils % (0.0 - 2.0 %) 0.1 Absolute Granulocytes (1.4 - 6.5 /CUMM) 20.6 H Segmented Neutrophils (42.2 - 75.2 %) 86 H Band Neutrophils (0.0 - 5.0 %) 5 Absolute Lymphocytes (1.2 - 3.4 /CUMM) 1.6 Lymphocytes (20.5 - 51.1 %) 5 L Monocytes (1.7 - 9.3 %) 1 L Absolute Monocytes (0.10 - 0.60 /CUMM) 0.2 Eosinophils (0 - 5.0 %) 2 Absolute Eosinophils (0.0 - 0.7 /CUMM) 0.2 Basophils (0.0 - 2.0 %) 1 Absolute Basophils (0.0 - 0.2 /CUMM) 0 Platelet Estimate (ADEQUATE) VERIFIED BY SMEAR Normocytic RBCs VERIFIED Normochromic RBCs VERIFIED PUBS MCHC (33.0 - 37.0 G/DL) 33.3 Other Body Source Fld Total RBCs Counted (%) 100
[2016-07-03 11:08] LABS: ABSOLUTE BASOPHIL COUNT 0 /CUMM (0.0-0.2); ABSOLUTE EOSINOPHIL COUNT 0 /CUMM (0.0-0.7); ABSOLUTE GRANULOCYTE CT 26.4 /CUMM (1.4-6.5); ABSOLUTE LYMPH COUNT 0.5 /CUMM (1.2-3.4); ABSOLUTE MONOCYTE COUNT 0.8 /CUMM (0.10-0.60); BASOPHIL % 0 % (0.0-2.0); EOSINOPHIL % 0 % (0-5); GRANULOCYTE % 95.2 % (42.2-75.2); HEMATOCRIT 43.2 % (42-52); MEAN CORPUSCULAR HGB 29.4 PG (27.0-31.0); MEAN CORPUSCULAR HGB CONC 33.1 G/DL (33.0-37.0); MEAN CORPUSCULAR VOLUME 88.9 FL (80.0-94.0); MEAN PLATELET VOLUME 9.3 FL (7.4-10.4); PLATELET COUNT 256 /CUMM (130-400); RBC DISTRIBUTION WIDTH 14.5 % (11.5-14.5); RED BLOOD CELL CT 4.85 /CUMM (4.70-6.10); WHITE BLOOD CELL COUNT 27.7 /CUMM (4.8-10.8)
--- NOTE | 2016-07-03 13:26 | Cons- Urology ---
General Information and HPI Consulting Request Date of Consult: 07/03/16 Requested By: KEENAN NIELSEN MD Reason for Consult: bilateral mild hydronephrosis Source of Information: patient, radiology Exam Limitations: no limitations History of Present Illness: Patient is a 71-year-old male with past medical history of asthma, DM, kidney stones s/p ESWL, hypertension, hyperlipidemia, thoracic aorta aneurysm(stable), peripheral vascular disease presented to the ED with chief complaint of sudden onset of fever and chills accompanied by shortness of breath, diaphoresis, nausea and low back pain. He was very uncomfortable and used his nebulizer medications with no improvement. His symptoms were similar to the time when he had kidney stones. He stopped taking the KCitrate under his PMDs advice as his K level was too high. He denied any abdominal pain, vomiting, chest pain, palpitations, urinary or bowel symptoms. He has seen Dr. Croft as an outpatient and was previously a patient of Dr. Martinez. Allergies/Medications Allergies: Coded Allergies: Penicillins (HIVES 07/02/16) Home Med List: Amoxicillin/Potassium Clav (Augmentin XR 1,000-62.5 Tab) 1,000 MG-62.5 MG TAB.ER.12H 1 TAB PO AD DENTAL WORK (Reported) with food Budesonide/Formoterol Fumarate (Symbicort 160-4.5 Mcg Inhaler) 160 MCG-4.5 MCG/ ACTUATION HFA.AER.AD 2 PUF INH BID ASTHMA (Reported) Cyclobenzaprine HCl 10 MG TABLET 1 TAB PO QPM PRN MUSCLE RELAXER (Reported) Furosemide 40 MG TABLET 1 TAB PO DAILY DIURETIC (Reported) Insulin Aspart, Recombinant (Novolog Flexpen) 100 UNIT/ML INSULN.PEN DM ( Reported) Insulin Degludec (Tresiba Flextouch U-200) 200 UNIT/ML (3 ML) INSULN.PEN 80 UNITS SC QAM DIABETES (Reported) Liraglutide (Victoza 3-Temo) 0.6 MG/0.1 ML (18 MG/3 ML) PEN.INJCTR 1.8 MG SC DAILY DM (Reported) Lisinopril 40 MG TABLET 1 TAB PO DAILY BP (Reported) Metformin HCl 1,000 MG TABLET 1 TAB PO BID GM (Reported) Metoprolol Succinate 50 MG TAB.ER.24H 1 TAB PO DAILY BP (Reported) Montelukast Sodium 10 MG TABLET 1 TAB PO DAILY ALLERGIES (Reported) Mv-Mn/FA/Vit K1/Lycop/Lut/Zeax (Ocuvite Eye + Multi Tablet) 200 MCG-15 MCG-150 MCG-5 MG-1 MG TABLET 1 TAB PO DAILY SUPPLEMENT (Reported) Pravastatin Sodium 20 MG TABLET 1 TAB PO QPM CHOLESTEROL (Reported) Sildenafil Citrate (Viagra) 100 MG TABLET 1 TAB PO PRN ED (Reported) 1 hour before sexual activity Current Medications: Current Medications Sig/Marky Start time Last Medication Dose Route Stop Time Status Admin Acetaminophen 325 MG Q6P PRN 07/03 0200 AC PO Acetaminophen 1,000 MG ONCE ONE 07/02 2044 DC 07/02 N/A 1 UNIT IV 07/02 Acetaminophen 0 .STK-MED ONE 07/02 2034 DC IV Albuterol Sulfate 3 ML BID 07/03 1251 AC 07/03 INH 1252 Albuterol Sulfate 3 ML ONCE ONE 07/02 2199 DC 07/02 INH 07/02 Albuterol Sulfate 3 ML ONCE ONE 07/02 2044 DC 07/02 INH 07/02 Azithromycin 500 MG ONCE ONE 07/02 2099 DC 07/02 Sodium Chloride 250 ML IV 07/02 Budesonide/ 2 PUF BID 07/03 1000 AC 07/03 Formoterol Fumarate INH 103 Ceftriaxone Sodium 1,000 MG 2100 07/03 2099 AC IV Ceftriaxone Sodium 0 .STK-MED ONE 07/02 2126 DC .ROUTE Ceftriaxone Sodium 1,000 MG ONCE ONE 07/02 2099 DC 07/02 IV 07/02 Cyclobenzaprine HCl 10 MG AT BEDTIME NEED.. 07/03 0330 AC PO Dextrose/Sodium 1,000 ML Q13H 07/03 0815 AC 07/03 Chloride IV 0834 Enoxaparin Sodium 40 MG DAILY 07/03 1000 AC 07/03 SC 1040 Furosemide 40 MG DAILY 07/03 1000 CAN PO Insulin Aspart 0 TIDAC 07/03 0800 DC SC Insulin Detemir 20 UNITS BID 07/03 1000 AC 07/03 SC 1040 Insulin Human Regular 0 Q6 07/03 0812 AC 07/03 SC 1247 Ketorolac 30 MG Q4-6 PRN PRN 07/03 0315 DC Tromethamine IV Ketorolac 0 .STK-MED ONE 07/03 0012 DC Tromethamine .ROUTE Ketorolac 30 MG ONCE ONE 07/02 2345 DC Tromethamine IV 07/02 2346 Lisinopril 40 MG DAILY 07/03 1000 AC 07/03 PO 1040 Methylprednisolone 40 MG Q8 07/03 0600 AC 07/03 IV 0729 Methylprednisolone 125 MG ONCE ONE 07/02 2045 DC 07/02 IV 07/02 204 204 Methylprednisolone 0 .STK-MED ONE 07/02 2034 DC .ROUTE Metoprolol Succinate 50 MG DAILY 07/03 1000 AC 07/03 PO 1040 Montelukast Sodium 10 MG DAILY 07/03 1000 AC 07/03 PO 1040 Morphine Sulfate 2 MG Q4P PRN 07/03 0345 AC IV Non-Formulary 0 SEE ADMIN CRITERIA 07/03 0330 CAN Medication ANY Pravastatin Sodium 20 MG QPM 07/03 2200 AC PO Sodium Chloride 1,000 ML Q10H 07/03 0100 DC 07/03 IV 0140 Sodium Chloride 1,000 ML BOLUS ONE 07/02 2044 DC 07/02 IV 07/02 Past History Medical History Blood Transfusion Hx: Yes Neurological: NONE EENT: NONE Cardiovascular: aortic aneurysm, hypertension, hyperlipidemia Respiratory: asthma Gastrointestinal: NONE Hepatic: NONE Renal: KIDNEY STONES Psychiatric: NONE Endocrine: diabetes Blood Disorders: NONE Cancer(s): NONE 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 Home Who Do You Live With? spouse Services at Home: None Primary Language: Tajik Smoking Status: Former Smoker Illicit Drug Use: denies illicit drug use Living Will? unknown Power of Arc Air Operator/HCP? unknown Functional Ability ADLs Independent: dressing, eating, toileting, bathing. Ambulation: independent IADLs Independent: shopping, housework, finances, telephone, transportation, medication admin. Needs Assist: food prep. Employment History Retired? unknown Review of Systems Review of Systems: as above. Review of Systems Constitutional: Reports: see HPI. EENTM: Reports: no symptoms. Cardiovascular: Reports: see HPI. Respiratory: Reports: see HPI. GI: Reports: no symptoms. Genitourinary: Reports: frequency. Musculoskeletal: Reports: no symptoms. Skin: Reports: no symptoms. Neurological/Psychological: Reports: no symptoms. Hematologic/Endocrine: Reports: no symptoms. Immunologic/Allergic: Reports: no symptoms. Exam & Diagnostic Data Vital Signs and I&O Vital Signs Date Time Temp Pulse Resp B/P Pulse O2 O2 Flow FiO2 Ox Delivery Rate 07/03 1253 Room Air Room Air 07/03 1040 80 122/68 07/03 1040 80 122/68 07/03 0737 98.2 73 20 120/76 96 Nasal 5.0L Cannula 07/03 0428 98.0 104 20 110/70 94 Room Air 07/03 0243 96.8 105 18 110/65 95 Room Air 07/03 0042 99.1 108 18 109/63 94 Room Air 07/03 0041 99.1 07/02 2310 100.3 07/02 2226 94 Nasal 4.0L Cannula 07/02 2127 102.0 121 20 121/63 97 Nasal 4.0L Cannula 07/02 2040 102.0 07/02 2024 95 Nasal 2.0L Cannula 07/02 195 102.0 130 20 147/72 97 Nasal 2.0L Cannula Intake & Output 07/03 1600 07/03 0800 07/03 0000 07/02 1600 07/02 0800 07/02 0000 Intake Total 250 1000 Output Total 500 Balance -250 1000 Intake, IV 250 1000 Number 0 Bowel Movements Output, Urine 500 Patient 138.346 kg Weight Physical Exam: awake and alert receiving nebulizer treatment sitting up in a chair. abd soft, ND/NT no rose in place. Rectal deferred as he had one yesterday with hospitalist NO C/C/E. Physical Exam General Appearance: well developed/nourished, no apparent distress, alert, awake , comfortable Head: atraumatic, normal appearance Eyes: Bilateral: normal appearance. Ears, Nose, Throat: normal ENT inspection Neck: normal inspection Respiratory: no respiratory distress Cardiovascular: regular rate/rhythm Gastrointestinal: soft, non-tender Rectal: deferred Back: normal inspection Extremities: normal inspection Neurologic/Psych: awake, alert, oriented x 3 Cranial Nerves: normal hearing, normal speech Skin: intact, normal color, warm/dry Last 24 Hours of Labs: Laboratory Tests 07/03 07/03 07/03 1050 0941 0402 Chemistry Sodium (137 - 145 mmol/L) 135 L Potassium (3.5 - 5.1 mmol/L) 4.7 Chloride (98 - 107 mmol/L) 93 L Carbon Dioxide (22 - 30 mmol/L) 25 Anion Gap (5 - 16) 16 BUN (9 - 20 mg/dL) 28 H Creatinine (0.7 - 1.2 mg/dL) 1.0 Estimated GFR (>60 ml/min) > 60 BUN/Creatinine Ratio (7 - 25 %) 28.0 H Lactic Acid (0.7 - 2.1 mmol/L) 2.9 H 4.8 H Troponin I (<0.11 ng/ml) < 0.01 Hematology CBC w Diff MAN DIFF ORDERED WBC (4.8 - 10.8 /CUMM) 27.7 H RBC (4.70 - 6.10 /CUMM) 4.85 Hgb (14.0 - 18.0 G/DL) 14.3 Hct (42 - 52 %) 43.2 MCV (80.0 - 94.0 FL) 88.9 MCH (27.0 - 31.0 PG) 29.4 RDW (11.5 - 14.5 %) 14.5 Plt Count (130 - 400 /CUMM) 256 MPV (7.4 - 10.4 FL) 9.3 Gran % (42.2 - 75.2 %) 95.2 H Lymphocytes % (20.5 - 51.1 %) 1.9 L Monocytes % (1.7 - 9.3 %) 2.9 Eosinophils % (0 - 5 %) 0 Basophils % (0.0 - 2.0 %) 0 L Absolute Granulocytes (1.4 - 6.5 /CUMM) 26.4 H Segmented Neutrophils (42.2 - 75.2 %) 82 H Band Neutrophils (0.0 - 5.0 %) 14 H Absolute Lymphocytes (1.2 - 3.4 /CUMM) 0.5 L Lymphocytes (20.5 - 51.1 %) 3 L Monocytes (1.7 - 9.3 %) 1 L Absolute Monocytes (0.10 - 0.60 /CUMM) 0.8 H Absolute Eosinophils (0.0 - 0.7 /CUMM) 0 Absolute Basophils (0.0 - 0.2 /CUMM) 0 Platelet Estimate (ADEQUATE) VERIFIED BY SMEAR Normocytic RBCs VERIFIED Normochromic RBCs VERIFIED PUBS MCHC (33.0 - 37.0 G/DL) 33.1 07/03 07/02 07/02 0354 2315 2255 Chemistry Lactic Acid (0.7 - 2.1 mmol/L) Cancelled 3.5 H Urines Urine Color (YEL,AMB,STR) YEL Urine Clarity (CLEAR) CLEAR Urine pH (5.0 - 8.0) 6.0 Ur Specific [place] (1.001 - 1.035) 1.015 Urine Protein (NEG,<30 MG/DL) NEG Urine Ketones (NEG) NEG Urine Nitrite (NEG) NEG Urine Bilirubin (NEG) NEG Urine Urobilinogen (0.1 - 1.0 EU/dl) 0.2 Ur Leukocyte Esterase (NEG) NEG Ur Microscopic SEDIMENT EXAMINED Urine RBC (0 - 5 /HPF) 1-3 Urine WBC (0 - 2 /HPF) RARE Ur Epithelial Cells (NONE,FEW) RARE Urine Hemoglobin (NEG) TRACE-LYSED H Urine Glucose (N MG/DL) 500 H 07/02 2009 Chemistry Sodium (137 - 145 mmol/L) 135 L Potassium (3.5 - 5.1 mmol/L) 4.3 Chloride (98 - 107 mmol/L) 93 L Carbon Dioxide (22 - 30 mmol/L) 26 Anion Gap (5 - 16) 16 BUN (9 - 20 mg/dL) 29 H Creatinine (0.7 - 1.2 mg/dL) 0.9 Estimated GFR (>60 ml/min) > 60 BUN/Creatinine Ratio (7 - 25 %) 32.2 H Glucose (65 - 99 mg/dL) 314 H Lactic Acid (0.7 - 2.1 mmol/L) 4.5 H Calcium (8.4 - 10.2 mg/dL) 9.4 Total Bilirubin (0.2 - 1.3 mg/dL) 0.6 AST (17 - 59 U/L) 53 ALT (21 - 72 U/L) 47 Alkaline Phosphatase (< 127 U/L) 82 Troponin I (<0.11 ng/ml) < 0.01 Hva-M-[id number] Pept (<125 pg/mL) 59.4 Total Protein (6.3 - 8.2 g/dL) 7.9 Albumin (3.5 - 5.0 g/dL) 4.3 Globulin (1.9 - 4.2 gm/dL) 3.6 Albumin/Globulin Ratio (1.1 - 2.2 %) 1.2 Amylase (30 - 110 U/L) 71 Lipase (23 - 300 U/L) 414 H Coagulation PT (9.4 - 12.5 SEC) 11.7 INR (0.90 - 1.17) 1.12 APTT (25 - 37 SEC) 23 L D-Dimer (70 - 232 ng/ml) 358 H Hematology CBC w Diff MAN DIFF ORDERED WBC (4.8 - 10.8 /CUMM) 22.6 H RBC (4.70 - 6.10 /CUMM) 5.13 Hgb (14.0 - 18.0 G/DL) 15.2 Hct (42 - 52 %) 45.7 MCV (80.0 - 94.0 FL) 88.9 MCH (27.0 - 31.0 PG) 29.6 RDW (11.5 - 14.5 %) 14.6 H Plt Count (130 - 400 /CUMM) 284 MPV (7.4 - 10.4 FL) 8.4 Gran % (42.2 - 75.2 %) 91.2 H Lymphocytes % (20.5 - 51.1 %) 6.9 L Monocytes % (1.7 - 9.3 %) 0.9 L Eosinophils % (0 - 5 %) 0.9 Basophils % (0.0 - 2.0 %) 0.1 Absolute Granulocytes (1.4 - 6.5 /CUMM) 20.6 H Segmented Neutrophils (42.2 - 75.2 %) 86 H Band Neutrophils (0.0 - 5.0 %) 5 Absolute Lymphocytes (1.2 - 3.4 /CUMM) 1.6 Lymphocytes (20.5 - 51.1 %) 5 L Monocytes (1.7 - 9.3 %) 1 L Absolute Monocytes (0.10 - 0.60 /CUMM) 0.2 Eosinophils (0 - 5.0 %) 2 Absolute Eosinophils (0.0 - 0.7 /CUMM) 0.2 Basophils (0.0 - 2.0 %) 1 Absolute Basophils (0.0 - 0.2 /CUMM) 0 Platelet Estimate (ADEQUATE) VERIFIED BY SMEAR Normocytic RBCs VERIFIED Normochromic RBCs VERIFIED PUBS MCHC (33.0 - 37.0 G/DL) 33.3 Other Body Source Fld Total RBCs Counted (%) 100 Imaging Results: CT scan of abdomen without kidney stones. mild bilateral hydronephrosis, no obstructive process appreciated Assessment/Plan Assessment/Plan 71yo male with multiple med problems with mild bilateral hydronephrosis with no signs of any stones on CT scan. He has no complaints of flank pain. Recommend renal US and bladder US to see if ureteral jets. May be physiologic phenomenon for pt. His creatinine is WNL. He should follow up as an outpt for his kidney stones issues since he stopped the Kcitrate as well. Consult Acknowledgment - Thank you for your consult request.
--- NOTE | 2016-07-03 14:00 | Cons- Infect Disease ---
General Information and HPI Consulting Request Date of Consult: 07/03/16 Requested By: KEENAN INELSEN MD Reason for Consult: Positive blood cultures for gram-positive cocci in pairs and chains Source of Information: patient, family, old records History of Present Illness: This is a 71-year-old man with diabetes, asthma, osteoarthritis, status post bilateral knee replacements, nephrolithiasis, status post lithotripsies and a right ureteral stent in the past for a staghorn calculus, and recurrent lower extremity cellulitis, with chronic venous stasis changes, particularly of the right lower extremity, admitted on July 02 after presenting to the emergency room with the acute onset of fevers and chills with vomiting, chest tightness, shortness of breath, lower back pain and weakness. On admission he was febrile to 102 with an O2 sat of 91% on room air. Examination in the emergency room apparently revealed an exquisitely tender and enlarged prostate. Laboratory data revealed a white blood cell count of 23,000, BUN/creatinine 29 and 0.9, lactic acid 4.5, lipase 414, with normal liver enzymes, coags normal. Urinalysis 1-3 RBC/rare WBC's. CTA of the chest and abdomen revealed mild bilateral hydroureteronephrosis, with chronic perinephric stranding, with no evidence of kidney stones; a normal gallbladder, bile ducts and pancreas; multiple pulmonary nodules, unchanged from previous exams. He was begun on Ceftriaxone and Azithromycin as well as Solumedrol. He has defervesced and feels improved today, with no further nausea or vomiting and, at present, he reports no pain. He has had no urinary complaints and denies dysuria, urgency or perineal discomfort. He reports no change in his lower extremities, with chronic mild discomfort in the right leg. He reports no abdominal pain and has had no cough. Allergies/Medications Allergies: Coded Allergies: Penicillins (HIVES 07/02/16) Home Med List: Amoxicillin/Potassium Clav (Augmentin XR 1,000-62.5 Tab) 1,000 MG-62.5 MG TAB.ER.12H 1 TAB PO AD DENTAL WORK (Reported) with food Budesonide/Formoterol Fumarate (Symbicort 160-4.5 Mcg Inhaler) 160 MCG-4.5 MCG/ ACTUATION HFA.AER.AD 2 PUF INH BID ASTHMA (Reported) Cyclobenzaprine HCl 10 MG TABLET 1 TAB PO QPM PRN MUSCLE RELAXER (Reported) Furosemide 40 MG TABLET 1 TAB PO DAILY DIURETIC (Reported) Insulin Aspart, Recombinant (Novolog Flexpen) 100 UNIT/ML INSULN.PEN DM ( Reported) Insulin Degludec (Tresiba Flextouch U-200) 200 UNIT/ML (3 ML) INSULN.PEN 80 UNITS SC QAM DIABETES (Reported) Liraglutide (Victoza 3-Temo) 0.6 MG/0.1 ML (18 MG/3 ML) PEN.INJCTR 1.8 MG SC DAILY DM (Reported) Lisinopril 40 MG TABLET 1 TAB PO DAILY BP (Reported) Metformin HCl 1,000 MG TABLET 1 TAB PO BID GM (Reported) Metoprolol Succinate 50 MG TAB.ER.24H 1 TAB PO DAILY BP (Reported) Montelukast Sodium 10 MG TABLET 1 TAB PO DAILY ALLERGIES (Reported) Mv-Mn/FA/Vit K1/Lycop/Lut/Zeax (Ocuvite Eye + Multi Tablet) 200 MCG-15 MCG-150 MCG-5 MG-1 MG TABLET 1 TAB PO DAILY SUPPLEMENT (Reported) Pravastatin Sodium 20 MG TABLET 1 TAB PO QPM CHOLESTEROL (Reported) Sildenafil Citrate (Viagra) 100 MG TABLET 1 TAB PO PRN ED (Reported) 1 hour before sexual activity Past History Travel History Traveled to [place] past 21 day No Medical History Blood Transfusion Hx: Yes Neurological: NONE EENT: NONE Cardiovascular: aortic aneurysm (thoracic), hypertension, hyperlipidemia Respiratory: asthma Gastrointestinal: GERD Hepatic: NONE Renal: nephrolithiasis Musculoskeletal: osteoarthritis Psychiatric: NONE Endocrine: diabetes Blood Disorders: NONE Cancer(s): NONE CARPENTER RAILCAR/Reproductive: NONE History of MRSA: No History of VRE: No History of CDIFF: No Isolation History: Standard Pneumonia Vaccine: 04/27/09 Influenza Vaccine: 03/31/12 Surgical History Surgical History: knee replacement (bilateral), ESWL, status post right rotator cuff surgery, status post removal of a heel spur, status post hernia repair Family History Relations & Conditions If Any: MOTHER FH: CHF (congestive heart failure) FH: diabetes mellitus FHx: breast cancer FHx: kidney cancer FATHER FH: CHF (congestive heart failure) Relation not specified for: FH: diabetes mellitus Psychosocial History Where Do You Live? Home Who Do You Live With? spouse Services at Home: None Primary Language: Ivorian Smoking Status: Former Smoker Illicit Drug Use: denies illicit drug use Living Will? unknown Power of Dry Ice Maker/HCP? unknown Functional Ability ADLs Independent: dressing, eating, toileting, bathing. Ambulation: independent IADLs Independent: shopping, housework, finances, telephone, transportation, medication admin. Needs Assist: food prep. Review of Systems Review of Systems Cardiovascular: Reports: peripheral edema. Respiratory: Denies: cough. GI: Denies: abdominal pain, diarrhea. Genitourinary: Reports: no symptoms. All Other Systems: Reviewed and Negative Exam & Diagnostic Data Last 24 Hrs of Vital Signs/I&O Vital Signs Date Time Temp Pulse Resp B/P Pulse O2 O2 Flow FiO2 Ox Delivery Rate 07/03 1253 Room Air Room Air 07/03 1040 80 122/68 07/03 1040 80 122/68 07/03 0737 98.2 73 20 120/76 96 Nasal 5.0L Cannula 07/03 0428 98.0 104 20 110/70 94 Room Air 07/03 0243 96.8 105 18 110/65 95 Room Air 07/03 0042 99.1 108 18 109/63 94 Room Air 07/03 0041 99.1 07/02 2310 100.3 07/02 2226 94 Nasal 4.0L Cannula 07/028 102.0 121 20 121/63 97 Nasal 4.0L Cannula 07/02 204 102.0 07/02 2024 95 Nasal 2.0L Cannula 07/02 1956 102.0 130 20 147/72 97 Nasal 2.0L Cannula Intake & Output 07/03 1600 07/03 0800 07/03 0000 Intake Total 250 1000 Output Total 500 Balance -250 1000 Intake, IV 250 1000 Number 0 Bowel Movements Output, Urine 500 Patient 305 lb Weight Physical Exam Other Physical Findings: He is awake and alert in no acute distress. MAXIMUM TEMPERATURE 102. Skin reveals no rash. HEENT exam is negative. Neck is supple with no adenopathy. Lungs are clear. Heart regular rhythm with no murmur. Abdomen is obese, soft, mildly tender on palpation over the right upper quadrant and epigastrium, with no guarding or rebound, positive bowel sounds. Back no CVA tenderness. Extremities bilateral lower extremity edema, right greater than left, with chronic venous stasis changes to the right lower extremity, with mild localized erythema and tenderness; 1+ pulses bilaterally. Neuro is without focality. Last 24 Hours of Lab Results: Laboratory Tests 07/03 07/03 07/03 1050 0941 0402 Chemistry Sodium (137 - 145 mmol/L) 135 L Potassium (3.5 - 5.1 mmol/L) 4.7 Chloride (98 - 107 mmol/L) 93 L Carbon Dioxide (22 - 30 mmol/L) 25 Anion Gap (5 - 16) 16 BUN (9 - 20 mg/dL) 28 H Creatinine (0.7 - 1.2 mg/dL) 1.0 Estimated GFR (>60 ml/min) > 60 BUN/Creatinine Ratio (7 - 25 %) 28.0 H Lactic Acid (0.7 - 2.1 mmol/L) 2.9 H 4.8 H Troponin I (<0.11 ng/ml) < 0.01 Hematology CBC w Diff MAN DIFF ORDERED WBC (4.8 - 10.8 /CUMM) 27.7 H RBC (4.70 - 6.10 /CUMM) 4.85 Hgb (14.0 - 18.0 G/DL) 14.3 Hct (42 - 52 %) 43.2 MCV (80.0 - 94.0 FL) 88.9 MCH (27.0 - 31.0 PG) 29.4 RDW (11.5 - 14.5 %) 14.5 Plt Count (130 - 400 /CUMM) 256 MPV (7.4 - 10.4 FL) 9.3 Gran % (42.2 - 75.2 %) 95.2 H Lymphocytes % (20.5 - 51.1 %) 1.9 L Monocytes % (1.7 - 9.3 %) 2.9 Eosinophils % (0 - 5 %) 0 Basophils % (0.0 - 2.0 %) 0 L Absolute Granulocytes (1.4 - 6.5 /CUMM) 26.4 H Segmented Neutrophils (42.2 - 75.2 %) 82 H Band Neutrophils (0.0 - 5.0 %) 14 H Absolute Lymphocytes (1.2 - 3.4 /CUMM) 0.5 L Lymphocytes (20.5 - 51.1 %) 3 L Monocytes (1.7 - 9.3 %) 1 L Absolute Monocytes (0.10 - 0.60 /CUMM) 0.8 H Absolute Eosinophils (0.0 - 0.7 /CUMM) 0 Absolute Basophils (0.0 - 0.2 /CUMM) 0 Platelet Estimate (ADEQUATE) VERIFIED BY SMEAR Normocytic RBCs VERIFIED Normochromic RBCs VERIFIED PUBS MCHC (33.0 - 37.0 G/DL) 33.1 07/03 07/02 07/02 0354 2315 2255 Chemistry Lactic Acid (0.7 - 2.1 mmol/L) Cancelled 3.5 H Urines Urine Color (YEL,AMB,STR) YEL Urine Clarity (CLEAR) CLEAR Urine pH (5.0 - 8.0) 6.0 Ur Specific Guthrie (1.001 - 1.035) 1.015 Urine Protein (NEG,<30 MG/DL) NEG Urine Ketones (NEG) NEG Urine Nitrite (NEG) NEG Urine Bilirubin (NEG) NEG Urine Urobilinogen (0.1 - 1.0 EU/dl) 0.2 Ur Leukocyte Esterase (NEG) NEG Ur Microscopic SEDIMENT EXAMINED Urine RBC (0 - 5 /HPF) 1-3 Urine WBC (0 - 2 /HPF) RARE Ur Epithelial Cells (NONE,FEW) RARE Urine Hemoglobin (NEG) TRACE-LYSED H Urine Glucose (N MG/DL) 500 H 07/02 2009 Chemistry Sodium (137 - 145 mmol/L) 135 L Potassium (3.5 - 5.1 mmol/L) 4.3 Chloride (98 - 107 mmol/L) 93 L Carbon Dioxide (22 - 30 mmol/L) 26 Anion Gap (5 - 16) 16 BUN (9 - 20 mg/dL) 29 H Creatinine (0.7 - 1.2 mg/dL) 0.9 Estimated GFR (>60 ml/min) > 60 BUN/Creatinine Ratio (7 - 25 %) 32.2 H Glucose (65 - 99 mg/dL) 314 H Lactic Acid (0.7 - 2.1 mmol/L) 4.5 H Calcium (8.4 - 10.2 mg/dL) 9.4 Total Bilirubin (0.2 - 1.3 mg/dL) 0.6 AST (17 - 59 U/L) 53 ALT (21 - 72 U/L) 47 Alkaline Phosphatase (< 127 U/L) 82 Troponin I (<0.11 ng/ml) < 0.01 Nzk-Z-Gzohjyriaka Pept (<125 pg/mL) 59.4 Total Protein (6.3 - 8.2 g/dL) 7.9 Albumin (3.5 - 5.0 g/dL) 4.3 Globulin (1.9 - 4.2 gm/dL) 3.6 Albumin/Globulin Ratio (1.1 - 2.2 %) 1.2 Amylase (30 - 110 U/L) 71 Lipase (23 - 300 U/L) 414 H Coagulation PT (9.4 - 12.5 SEC) 11.7 INR (0.90 - 1.17) 1.12 APTT (25 - 37 SEC) 23 L D-Dimer (70 - 232 ng/ml) 358 H Hematology CBC w Diff MAN DIFF ORDERED WBC (4.8 - 10.8 /CUMM) 22.6 H RBC (4.70 - 6.10 /CUMM) 5.13 Hgb (14.0 - 18.0 G/DL) 15.2 Hct (42 - 52 %) 45.7 MCV (80.0 - 94.0 FL) 88.9 MCH (27.0 - 31.0 PG) 29.6 RDW (11.5 - 14.5 %) 14.6 H Plt Count (130 - 400 /CUMM) 284 MPV (7.4 - 10.4 FL) 8.4 Gran % (42.2 - 75.2 %) 91.2 H Lymphocytes % (20.5 - 51.1 %) 6.9 L Monocytes % (1.7 - 9.3 %) 0.9 L Eosinophils % (0 - 5 %) 0.9 Basophils % (0.0 - 2.0 %) 0.1 Absolute Granulocytes (1.4 - 6.5 /CUMM) 20.6 H Segmented Neutrophils (42.2 - 75.2 %) 86 H Band Neutrophils (0.0 - 5.0 %) 5 Absolute Lymphocytes (1.2 - 3.4 /CUMM) 1.6 Lymphocytes (20.5 - 51.1 %) 5 L Monocytes (1.7 - 9.3 %) 1 L Absolute Monocytes (0.10 - 0.60 /CUMM) 0.2 Eosinophils (0 - 5.0 %) 2 Absolute Eosinophils (0.0 - 0.7 /CUMM) 0.2 Basophils (0.0 - 2.0 %) 1 Absolute Basophils (0.0 - 0.2 /CUMM) 0 Platelet Estimate (ADEQUATE) VERIFIED BY SMEAR Normocytic RBCs VERIFIED Normochromic RBCs VERIFIED PUBS MCHC (33.0 - 37.0 G/DL) 33.3 Other Body Source Fld Total RBCs Counted (%) 100 Last 24 Hours of Andrea Results: Blood cultures 2 July 02 positive for gram-positive cocci in pairs and chains Urine culture July 02 negative Diagnostic Data Recent Imaging Findings: CTA of the chest and abdomen revealed mild bilateral hydroureteronephrosis, with chronic perinephric stranding, with no evidence of kidney stones; a normal gallbladder, bile ducts and pancreas; multiple pulmonary nodules, unchanged from previous exams. Assessment/Plan Assessment/Plan Impression: This is a 71-year-old man with diabetes, asthma, recurrent cellulitis of the lower extremities and nephrolithiasis, status post lithotripsies and right ureteral stent in the past, admitted on July 02 with the acute onset of fevers , chills, chest tightness, shortness of breath, nausea with vomiting and weakness, found to be febrile with an exquisitely tender prostate reported on exam, with a leukocytosis and with blood cultures today reported positive for gram-positive cocci in pairs and chains. Possible sources of sepsis include the genitourinary tract, including the prostate, given the report of an exquisitely tender prostate on exam, though he reports no urinary or perineal symptoms and his urinalysis is unremarkable, a biliary process, given the epigastric and right upper quadrant tenderness and the elevated lipase, cellulitis of the right lower extremity, given the mild erythema and tenderness, though this is reportedly chronic. His antibiotics should be adjusted to cover Enterococcus, particularly if this turns out to be urinary or biliary, and the identification of the blood isolate should help identify the source of infection. He has been evaluated by Urology, with recommendations noted. Suggestion: 1. Right upper quadrant ultrasound (can do with the renal/bladder ultrasound suggested by Urology) 2. Would taper steroids 3. Follow-up final cultures 4. Discontinue Ceftriaxone and Azithromycin 5. Begin Vancomycin 1.5 grams IV every 12 hours pending above Consult Acknowledgment - Thank you for your consult request.
--- NOTE | 2016-07-03 15:41 | ULTRASOUND REPORT ---
EXAMINATION: US TRIPLEX LOWER EXTREMITY, BILATERAL CLINICAL INFORMATION: Bilateral leg swelling. COMPARISON: None. TECHNIQUE: Color-flow triplex imaging with spectral analysis and compression Doppler were performed on the bilateral lower extremities. FINDINGS: Respiratory variation, normal compression and augmented flow are noted throughout the bilateral lower extremities. The visualized common femoral vein, superficial femoral vein, profunda femoral vein, popliteal vein and mid calf peroneal and posterior tibial venous segments show no evidence of deep venous thrombosis. There is no Casey's cyst. There is a 2.7 x 1.1 x 2.1 cm lymph node superior to the right femoral vein. IMPRESSION: No evidence of deep venous thrombosis involving the bilateral lower extremities.
--- NOTE | 2016-07-03 15:53 | ULTRASOUND REPORT ---
EXAMINATION: US ABDOMEN COMPLETE CLINICAL INFORMATION: Infection in kidneys/bladder/liver. COMPARISON: CT 07/02/2016 TECHNIQUE: Real-time imaging of the abdominal viscera. FINDINGS: PANCREAS: Obscured by overlying bowel gas. ABDOMINAL AORTA: Obscured by overlying bowel gas. INFERIOR VENA CAVA: Obscured by overlying bowel gas. LIVER: The liver demonstrates increased echogenicity consistent with steatosis. No focal lesion or intrahepatic biliary duct dilatation. GALLBLADDER: The gallbladder is physiologically distended without evidence of stones, sludge, polyps, wall thickening or pericholecystic fluid. COMMON BILE DUCT: Normal in caliber measuring 0.3 cm in diameter. RIGHT KIDNEY: No hydronephrosis. No renal calculi or focal parenchymal lesions. The kidney measures 13.8 cm in maximum dimension. LEFT KIDNEY: No hydronephrosis. No renal calculi or focal parenchymal lesions. The kidney measures 12.3 cm in maximum dimension. SPLEEN: Normal. The spleen measures 12.2 cm in maximum dimension. FREE FLUID: None. BLADDER: Partially distended, with a volume of approximately 175 mL. Bilateral ureteral jets are not visualized. IMPRESSION: Hepatic steatosis. No acute findings identified.
--- NOTE | 2016-07-03 16:35 | NUR ---
1000- PT IVF ORDERED FOR 200 ML/HR. VERIFIED RATE WITH DR. OSBORNE DUE TO CONCERNS OF FLUID OVERLOAD. PT WITH BLE EDEMA +2 AND [address] A[address]OMEN. PER DR. OSBORNE, RATE TO REMAIN 200 ML/HR AND LASIX TO BE DISCONTINUED DUE TO SEPSIS. 1230- PT COMPLAINING OF SOB. NO CRACKLES NOTED, BUT LUNGS DIMINISHED AT BASES. RESPIRATORY CALLED. DR. OSBORNE CALLED REGARDING SOB. IVF RATE DECREASED TO 75 ML/HR. RESPIRATORY TREATMENT ADMINISTERD. WILL CONTINUE TO MONITOR. 12:40- REQUESTED DR. OSBORNE TO ASSESS PT AT BEDSIDE AND TO COMMUNICATE BLOOD CULTURE RESULTS AND PLAN OF CARE. 13:00- DR. KENNEY AND DR. OSBORNE AT PT BEDSIDE.
[2016-07-03 17:38] VITALS: BP 110/60
[2016-07-03 22:45] VITALS: BP 122/60
--- NOTE | 2016-07-04 06:25 | PN- Housestaff ---
Subjective Follow-up For: Sepsis Cellulitis Subjective: Patient seen and examined at bedside. No acute events overnight. Alert, awake and oriented x 3. He in no acute apparent distress wthout any acute complaints, eating breakfast. Denies shortness of breath, cough, headache, fever, chills, chest pain, palpitations, nausea, vomiting, diarrhea, blurred/double vision, dizziness/lightheadedness. Review of Systems Constitutional: Reports: see HPI. Objective Last 24 Hrs of Vital Signs/I&O Vital Signs Date Time Temp Pulse Resp B/P Pulse O2 O2 Flow FiO2 Ox Delivery Rate 07/04 1441 97.8 91 20 134/68 95 07/04 0923 105 122/70 07/04 0923 105 122/70 07/04 0856 93 Room Air 07/04 0643 97.4 94 20 126/80 92 Room Air 07/03 2245 98.7 103 20 122/60 91 Room Air 07/03 1934 92 Room Air 07/03 1738 98.1 102 20 110/60 92 Room Air Intake & Output 07/04 1600 07/04 0800 07/04 0000 Intake Total 400 400 Output Total 200 Balance 400 200 Intake, IV 300 300 Intake, Oral 100 100 Output, Urine 200 Physical Exam General Appearance: Alert, Oriented X3, Cooperative, No Acute Distress Other Physical Findings: Skin Mild erythema/edema/TTP in the RLE HEENT Atraumatic, PERRLA, EOMI, Mucous Membr. moist/pink Neck Supple Cardiovascular No m/r/g, regular rhythm and rate Lungs Clear to Auscultation, Normal Air Movement Abdomen Normal Bowel Sounds, Soft, No Tenderness Neurological Normal Speech Extremities Trace edema bilaterally Current Medications: Current Medications Sig/Marky Start time Last Medication Dose Route Stop Time Status Admin Acetaminophen 325 MG Q6P PRN 07/03 0200 AC PO Albuterol Sulfate 3 ML BID 07/03 1251 AC 07/04 INH 0854 Budesonide/ 2 PUF BID 07/03 1000 AC 07/04 Formoterol Fumarate INH 0931 Cefazolin Sodium 2 GM IQ8 07/04 1600 AC N/A 1 UNIT IV Cyclobenzaprine HCl 10 MG AT BEDTIME NEED.. 07/03 0330 AC 07/03 PO 2154 Dextrose/Sodium 1,000 ML Q13H 07/03 0815 DC 07/03 Chloride IV 0834 Enoxaparin Sodium 40 MG DAILY 07/03 1000 AC 07/04 SC 0922 Insulin Aspart 0 TIDAC 07/03 1700 AC 07/04 SC 1207 Insulin Detemir 20 UNITS BID 07/03 1000 AC 07/04 SC 0922 Insulin Human Regular 0 Q6 07/03 0812 DC 07/03 SC 1247 Lisinopril 40 MG DAILY 07/03 1000 AC 07/04 PO 0923 Methylprednisolone 40 MG DAILY 07/05 1000 AC IV 07/05 1800 Methylprednisolone 40 MG Q12 07/03 2200 DC 07/04 IV 0922 Metoprolol Succinate 50 MG DAILY 07/03 1000 AC 07/04 PO 0923 Montelukast Sodium 10 MG DAILY 07/03 1000 AC 07/04 PO 0923 Morphine Sulfate 2 MG Q4P PRN 07/03 0345 AC IV Patient Medication 1 ED .STK-MED ONE 07/04 1400 [facility] Teaching ED 07/04 1401 Pravastatin Sodium 20 MG QPM 07/03 2200 AC 07/03 PO 2155 Vancomycin HCl 1,500 MG Q12 07/03 1426 DC 07/04 Sodium Chloride 250 ML IV 1104 Last 24 Hrs of Lab/Andrea Results Last 24 Hrs of Labs/Mics: Laboratory Tests 07/04/16 0700: Anion Gap 16, Estimated GFR > 60, BUN/Creatinine Ratio 34.4 H, CBC w Diff NO MAN DIFF REQ, RBC 4.70, MCV 88.2, MCH 29.5, RDW 15.4 H, MPV 9.3, Gran % 91.9 H , Lymphocytes % 3.4 L, Monocytes % 4.5, Eosinophils % 0, Basophils % 0.2, Absolute Granulocytes 22.9 H, Absolute Lymphocytes 0.8 L, Absolute Monocytes 1.1 H, Absolute Eosinophils 0, Absolute Basophils 0.1, PUBS MCHC 33.4 07/03/16 2145: Troponin I < 0.01 07/03/16 214: Lactic Acid 1.8 Assessment/Plan Assessment: Patient is a 71-year-old male with past medical history of asthma, diabetes mellitus, renal stones status post lithotripsy, hypertension, hyperlipidemia, thoracic aorta aneurysm(stable), peripheral vascular disease presented to the ED today with chief complaint of sudden onset of fever and chills this afternoon accompanied by shortness of breath, diaphoresis and low back pain. # Sepsis most likely 2/2 cellulitis and bacteremia Vitals on arrival temperature 102, pulse 130, respiration 20. CBC significant for leukocytosis of 22.6 with a left shift. Elevated lactic acid levels. JOSE DANIEL remarkable for exquisitely tender and enlarged prostate on examination. Thus his sepsis was most attributable to prostatitis initially. Given the blood cultures growing group B strep, however, cellulitis ias deemed a more likely source of the infection. In any case, it was agreed by the urologist Dr. Garcia that there are no urological interventions warranted for the patient. Sepsis has resolved with IVF resuscitation and anmicrobial therapy. He is currently hemodynamically stable and afebrile with no signs of sepsis. * Cont to monitor for signs of infection and hemodynamic instability * Appreciate ID recs * Oxygen support and IV hydration as needed * Cont antibiotic therapy as discussed below # Bacteremia Most likely from the cellulitis in RLE. Bcx from 07/03 currently growing GBS. * Discontinue Vancyomycin (day 2) * Start Cefazolin 2mg IV q8H per ID rec * Cont to follow blood cultures for identification, C&S . # Cellulitis: Right foot cellulitis, chronic. Likely secondary to venous stasis. Venous doppler negative. * Cefazolin 2mg IV q8H as per above-mentioned plan * Cont leg elevation. * Compression stockings * Resume Lasix for pedal edema. # Asthma exacerbation Patient presented with an acute onset of dyspnea. Differentials also included PE initially. No PE seen on CTA. No evidence of pneumonia. No history of heart failure. * Keep oxygen saturations above 92% * TRC nebs [id number] * Continue steroid taper - decrease to SoluMedrol 40mg daily * Continue Symbicort * Pancultures pending # History of renal stones s/p lithotripsy x2 * Consulted by urology, follow recs * Outpatient f/u per uro rec # Diabetes mellitus * Novolog SSI with accuchekcs * Increase Levemer to 25U BID (takes 80U daily at home) * Diabetic diet # Essential hypertension * c/w metoprolol, lisinopril and Lasix. # Arthritis * Tramadol & muscle relaxant. - Diabetic diet - Mild pain pathway - DVT prophylaxis subcutaneous Lovenox - Full code Problem List: 1. Arthritis 2. Asthma 3. Diabetes mellitus 4. Essential hypertension 5. Hyperlipidemia 6. Staghorn calculus 7. Leukocytosis 8. Fever 9. Cellulitis 10. Sepsis 11. Chest pain 12. Prostatitis Pain Ratin Pain Location: 0 Pain Goal: Remain pain free Pain Plan: Mild pathway Tomorrow's Labs & Rationales: CBC
[2016-07-04 06:43] VITALS: BP 126/80
[2016-07-04 08:12] LABS: ABSOLUTE BASOPHIL COUNT 0.1 /CUMM (0.0-0.2); ABSOLUTE EOSINOPHIL COUNT 0 /CUMM (0.0-0.7); ABSOLUTE GRANULOCYTE CT 22.9 /CUMM (1.4-6.5); ABSOLUTE LYMPH COUNT 0.8 /CUMM (1.2-3.4); ABSOLUTE MONOCYTE COUNT 1.1 /CUMM (0.10-0.60); BASOPHIL % 0.2 % (0.0-2.0); EOSINOPHIL % 0 % (0-5); HEMATOCRIT 41.5 % (42-52); MEAN CORPUSCULAR HGB 29.5 PG (27.0-31.0); MEAN CORPUSCULAR HGB CONC 33.4 G/DL (33.0-37.0); MEAN CORPUSCULAR VOLUME 88.2 FL (80.0-94.0); MEAN PLATELET VOLUME 9.3 FL (7.4-10.4); RBC DISTRIBUTION WIDTH 15.4 % (11.5-14.5); WHITE BLOOD CELL COUNT 24.9 /CUMM (4.8-10.8)
[2016-07-04 09:22] LABS: GRANULOCYTE % 91.9 % (42.2-75.2); PLATELET COUNT 264 /CUMM (130-400)
--- NOTE | 2016-07-04 11:52 | PN- Infect Dx ---
Subjective Subjective: Afebrile on steroids without complaints. He has had no further GI symptoms, chest tightness or chills. He reports no urinary symptoms. Objective Last 24 Hrs of Vital Signs/I&O Vital Signs Date Time Temp Pulse Resp B/P Pulse O2 O2 Flow FiO2 Ox Delivery Rate 07/04 0923 105 122/70 07/04 0923 105 122/70 07/04 0856 93 Room Air 07/04 0643 97.4 94 20 126/80 92 Room Air 07/03 2245 98.7 103 20 122/60 91 Room Air 07/03 1934 92 Room Air 07/03 1738 98.1 102 20 110/60 92 Room Air 07/03 1253 Room Air Room Air Intake & Output 07/04 1600 07/04 0800 07/04 0000 Intake Total 400 400 Output Total 200 Balance 400 200 Intake, IV 300 300 Intake, Oral 100 100 Output, Urine 200 Physical Exam Other Physical Findings: He appears comfortable in no acute distress Lungs are clear Heart regular rhythm with no murmur Abdomen is soft, nontender with positive bowel sounds Extremities right leg erythema, warmth and edema, with no tenderness on palpation Results Last 24 Hours of Lab Results: Laboratory Tests 07/04 07/03 07/03 0700 2145 2145 Chemistry Sodium (137 - 145 mmol/L) 134 L Potassium (3.5 - 5.1 mmol/L) 5.0 Chloride (98 - 107 mmol/L) 90 L Carbon Dioxide (22 - 30 mmol/L) 28 Anion Gap (5 - 16) 16 BUN (9 - 20 mg/dL) 31 H Creatinine (0.7 - 1.2 mg/dL) 0.9 Estimated GFR (>60 ml/min) > 60 BUN/Creatinine Ratio (7 - 25 %) 34.4 H Lactic Acid (0.7 - 2.1 mmol/L) 1.8 Troponin I (<0.11 ng/ml) < 0.01 Hematology CBC w Diff NO MAN DIFF REQ WBC (4.8 - 10.8 /CUMM) 24.9 H RBC (4.70 - 6.10 /CUMM) 4.70 Hgb (14.0 - 18.0 G/DL) 13.9 L Hct (42 - 52 %) 41.5 L MCV (80.0 - 94.0 FL) 88.2 MCH (27.0 - 31.0 PG) 29.5 RDW (11.5 - 14.5 %) 15.4 H Plt Count (130 - 400 /CUMM) 264 MPV (7.4 - 10.4 FL) 9.3 Gran % (42.2 - 75.2 %) 91.9 H Lymphocytes % (20.5 - 51.1 %) 3.4 L Monocytes % (1.7 - 9.3 %) 4.5 Eosinophils % (0 - 5 %) 0 Basophils % (0.0 - 2.0 %) 0.2 Absolute Granulocytes (1.4 - 6.5 /CUMM) 22.9 H Absolute Lymphocytes (1.2 - 3.4 /CUMM) 0.8 L Absolute Monocytes (0.10 - 0.60 /CUMM) 1.1 H Absolute Eosinophils (0.0 - 0.7 /CUMM) 0 Absolute Basophils (0.0 - 0.2 /CUMM) 0.1 PUBS MCHC (33.0 - 37.0 G/DL) 33.4 Last 24 Hours of Andrea Results: Blood cultures July 02 positive for Group B strep Urine culture July 02 negative Recent Imaging Studies: Abdominal/pelvic ultrasound July 03 reveals a physiologically distended gallbladder with no evidence of stones, sludge, polyps, wall thickening or pericholecystic fluid; no hydronephrosis or renal calculi Dopplers of both lower extremities July 03 negative Assessment/Plan Impression: Improving with temperatures normal (on steroids) with persistent leukocytosis, though slightly decreased, likely in part secondary to the steroids, on Vancomycin now Day 2 of treatment for Group B strep sepsis, most likely secondary to cellulitis of the right leg. A urologic source is possible, with the report of an exquisitely tender prostate on exam, but he had no urinary symptoms and his urinalysis and urine culture are negative. A biliary source is also possible, with nausea and vomiting on admission and with an elevated lipase , but the ultrasound does not suggest acute cholecystitis. Suggestion: 1. Would taper or discontinue steroids 2. Discontinue Vancomycin 3. Begin Cefazolin 2 g IV every 8 hours
[2016-07-04 14:41] VITALS: BP 134/68
--- NOTE | 2016-07-04 16:03 | PN- Att Addend ---
Attending Addendum Attending Brief Note Patient sitting in the chair. His a febrile, no chills but his right leg is very red and warm today his blood sugars are up due to the infection will adjust his medications. Appreciate Usman Omer MD's input and recommendations. His white count is 24,900 today but yesterday was 27,700 and cultures negative after 2 days 2 blood cultures growing beta strep be isolated continue treatment as per ID Current Medications Sig/Marky Start time Last Medication Dose Route Stop Time Status Admin Acetaminophen 325 MG Q6P PRN 07/03 0200 AC PO Albuterol Sulfate 3 ML BID 07/03 1251 AC 07/04 INH 0854 Budesonide/ 2 PUF BID 07/03 1000 AC 07/04 Formoterol Fumarate INH 0931 Cefazolin Sodium 2 GM IQ8 07/04 1600 AC N/A 1 UNIT IV Cyclobenzaprine HCl 10 MG AT BEDTIME NEED.. 07/03 0330 AC 07/03 PO 2154 Dextrose/Sodium 1,000 ML Q13H 07/03 0815 DC 07/03 Chloride IV 0834 Enoxaparin Sodium 40 MG DAILY 07/03 1000 AC 07/04 SC 0922 Insulin Aspart 0 TIDAC 07/03 1700 AC 07/04 SC 1207 Insulin Detemir 25 UNITS BID 07/04 2200 AC SC Insulin Detemir 20 UNITS BID 07/03 1000 DC 07/04 SC 0922 Insulin Human Regular 0 Q6 07/03 0812 DC 07/03 SC 1247 Lisinopril 40 MG DAILY 07/03 1000 AC 07/04 PO 0923 Methylprednisolone 40 MG DAILY 07/05 1000 AC IV 07/05 1800 Methylprednisolone 40 MG Q12 07/03 2200 DC 07/04 IV 0922 Metoprolol Succinate 50 MG DAILY 07/03 1000 AC 07/04 PO 0923 Montelukast Sodium 10 MG DAILY 07/03 1000 AC 07/04 PO 0923 Morphine Sulfate 2 MG Q4P PRN 07/03 0345 AC IV Patient Medication 1 ED .STK-MED ONE 07/04 1400 DC Teaching ED 07/04 1401 Pravastatin Sodium 20 MG QPM 07/03 2200 AC 07/03 PO 2155 Vancomycin HCl 1,500 MG Q12 07/03 1426 DC 07/04 Sodium Chloride 250 ML IV 1104 Laboratory Tests 07/04/16 0700: Anion Gap 16, Estimated GFR > 60, BUN/Creatinine Ratio 34.4 H, CBC w Diff NO MAN DIFF REQ, RBC 4.70, MCV 88.2, MCH 29.5, RDW 15.4 H, MPV 9.3, Gran % 91.9 H , Lymphocytes % 3.4 L, Monocytes % 4.5, Eosinophils % 0, Basophils % 0.2, Absolute Granulocytes 22.9 H, Absolute Lymphocytes 0.8 L, Absolute Monocytes 1.1 H, Absolute Eosinophils 0, Absolute Basophils 0.1, [facility] MCHC 33.4 07/03/16 2145: Troponin I < 0.01 07/03/16 2145: Lactic Acid 1.8 07/03/16 1050: Anion Gap 16, Estimated GFR > 60, BUN/Creatinine Ratio 28.0 H, Troponin I < 0.01 07/03/16 0941: Lactic Acid 2.9 H, CBC w Diff MAN DIFF ORDERED, RBC 4.85, MCV 88.9, MCH 29.4, RDW 14.5, MPV 9.3, Gran % 95.2 H, Lymphocytes % 1.9 L, Monocytes % 2.9, Eosinophils % 0, Basophils % 0 L, Absolute Granulocytes 26.4 H, Segmented Neutrophils 82 H, Band Neutrophils 14 H, Absolute Lymphocytes 0.5 L, Lymphocytes 3 L, Monocytes 1 L, Absolute Monocytes 0.8 H, Absolute Eosinophils 0, Absolute Basophils 0, Platelet Estimate VERIFIED BY SMEAR, Normocytic RBCs VERIFIED, Normochromic RBCs VERIFIED, [facility] 33.1 07/03/16 0402: Lactic Acid 4.8 H 07/03/16 0354: Lactic Acid Cancelled 07/02/16 2315: Lactic Acid 3.5 H 07/02/16 2255: Urine Color YEL, Urine Clarity CLEAR, Urine pH 6.0, Ur Specific Biggs 1.015, Urine Protein NEG, Urine Ketones NEG, Urine Nitrite NEG, Urine Bilirubin NEG, Urine Urobilinogen 0.2, Ur Leukocyte Esterase NEG, Ur Microscopic SEDIMENT EXAMINED, Urine RBC 1-3, Urine WBC RARE, Ur Epithelial Cells RARE, Urine Hemoglobin TRACE-LYSED H, Urine Glucose 500 H 07/02/162009: Anion Gap 16, Estimated GFR > 60, BUN/Creatinine Ratio 32.2 H, Glucose 314 H, Lactic Acid 4.5 H, Calcium 9.4, Total Bilirubin 0.6, AST 53, ALT 47, Alkaline Phosphatase 82, Troponin I < 0.01, Cwo-H-Ixwszjnvony Pept 59.4, Total Protein 7.9, Albumin 4.3, Globulin 3.6, Albumin/Globulin Ratio 1.2, Amylase 71, Lipase 414 H, PT 11.7, INR 1.12, APTT 23 L, D-Dimer 358 H, CBC w Diff MAN DIFF ORDERED, RBC 5.13, MCV 88.9, MCH 29.6, RDW 14.6 H, MPV 8.4, Gran % 91.2 H, Lymphocytes % 6.9 L, Monocytes % 0.9 L, Eosinophils % 0.9, Basophils % 0.1, Absolute Granulocytes 20.6 H, Segmented Neutrophils 86 H, Band Neutrophils 5, Absolute Lymphocytes 1.6, Lymphocytes 5 L, Monocytes 1 L, Absolute Monocytes 0.2, Eosinophils 2, Absolute Eosinophils 0.2, Basophils 1, Absolute Basophils 0, Platelet Estimate VERIFIED BY SMEAR, Normocytic RBCs VERIFIED, Normochromic RBCs VERIFIED, PUBS MCHC 33.3, Fld Total RBCs Counted 100 Microbiology 07/02 2244 URINE ROUT: Urine Culture - COMP 07/02 2038 BLOOD: Blood Culture - COMP BETA STREP GROUP B 07/02 2009 BLOOD: Blood Culture - COMP BETA STREP GROUP B Vital Signs Date Time Temp Pulse Resp B/P Pulse O2 O2 Flow FiO2 Ox Delivery Rate 07/04 1441 97.8 91 20 134/68 95 07/04 0923 105 122/70 07/04 0923 105 122/70 07/04 0856 93 Room Air
[2016-07-04 22:32] VITALS: BP 130/80
--- NOTE | 2016-07-05 06:28 | PN- Housestaff ---
Subjective Follow-up For: Sepsis Cellulitis Subjective: Patient seen and examined at bedside. No acute events overnight. No changes from yesterday. Refused Lasix because it was given too late last night per the patient. This morning he is alert, awake and oriented x 3, in no acute distress and with no new complaints. Getting out of bed and walking around in the room. Denies shortness of breath, cough, headache, fever, chills, chest pain, palpitations, nausea, vomiting, diarrhea, blurred/double vision, dizziness/ lightheadedness. Review of Systems Constitutional: Reports: see HPI. Objective Last 24 Hrs of Vital Signs/I&O Vital Signs Date Time Temp Pulse Resp B/P Pulse O2 O2 Flow FiO2 Ox Delivery Rate 07/05 0825 96 Room Air Room Air 07/05 0810 90 130/80 07/05 0810 90 130/80 07/05 0629 97.8 84 20 132/80 94 Room Air 07/05 0000 96 Room Air 07/04 2232 97.6 93 20 130/80 96 Room Air 07/04 1925 94 Room Air 07/04 1600 Room Air 07/04 1441 97.8 91 20 134/68 95 Intake & Output 07/05 1600 07/05 0800 07/05 0000 Intake Total 600 450 480 Output Total 500 Balance 100 450 480 Intake, IV 150 Intake, Oral 600 300 480 Output, Urine 500 Physical Exam General Appearance: Alert, Oriented X3, Cooperative, No Acute Distress Other Physical Findings: Skin Moderate erythema/edema but no TTP in the RLE HEENT Atraumatic, PERRLA, EOMI, Mucous Membr. moist/pink Neck Supple Cardiovascular No m/r/g, regular rhythm and rate Lungs Clear to Auscultation, Normal Air Movement Abdomen Normal Bowel Sounds, Soft, No Tenderness Neurological Normal Speech Extremities Trace edema in LLE, 1+ edema in RLE Current Medications: Current Medications Sig/Marky Start time Last Medication Dose Route Stop Time Status Admin Acetaminophen 325 MG Q6P PRN 07/03 0200 AC PO Albuterol Sulfate 3 ML Q6P PRN 07/05 0900 AC INH Albuterol Sulfate 3 ML BID 07/03 1251 DC 07/04 INH 1928 Budesonide/ 2 PUF BID 07/03 1000 AC 07/05 Formoterol Fumarate INH 1136 Cefazolin Sodium 2 GM IQ8 07/04 1600 AC 07/05 N/A 1 UNIT IV 0814 Cyclobenzaprine HCl 10 MG AT BEDTIME NEED.. 07/03 0330 AC 07/03 PO 2154 Enoxaparin Sodium 40 MG DAILY 07/03 1000 AC 07/05 SC 0812 Furosemide 40 MG 7:30AM 07/06 0730 AC PO Furosemide 40 MG DAILY 07/04 1622 DC 07/05 PO 0811 Insulin Aspart 10 UNITS ONCE ONE 07/04 2230 DC 07/04 SC 07/04 2231 2240 Insulin Aspart 0 TIDAC 07/03 1700 AC 07/05 SC 1317 Insulin Detemir 25 UNITS BID 07/04 2200 AC 07/05 SC 1136 Insulin Detemir 20 UNITS BID 07/03 1000 DC 07/04 SC 0922 Lisinopril 40 MG DAILY 07/03 1000 AC 07/05 PO 0810 Methylprednisolone 40 MG DAILY 07/05 1000 AC 07/05 IV 07/05 1800 1136 Metoprolol Succinate 50 MG DAILY 07/03 1000 AC 07/05 PO 0810 Montelukast Sodium 10 MG DAILY 07/03 1000 AC 07/05 PO 0809 Morphine Sulfate 2 MG Q4P PRN 07/03 0345 AC IV Patient Medication 1 ED .STK-MED ONE 07/04 1400 WI Teaching ED 07/04 1401 Pravastatin Sodium 20 MG QPM 07/03 2200 07/04 PO 2239 Last 24 Hrs of Lab/Andrea Results Last 24 Hrs of Labs/Mics: Laboratory Tests 07/05/16 0751: Anion Gap 13, Estimated GFR > 60, BUN/Creatinine Ratio 31.1 H, CBC w Diff NO MAN DIFF REQ, RBC 5.09, MCV 87.8, MCH 29.8, RDW 14.6 H, MPV 8.4, Gran % 87.0 H , Lymphocytes % 7.2 L, Monocytes % 5.7, Eosinophils % 0.1, Basophils % 0 L, Absolute Granulocytes 17.5 H, Absolute Lymphocytes 1.5, Absolute Monocytes 1.1 H, Absolute Eosinophils 0, Absolute Basophils 0, PUBS MCHC 34.0 Assessment/Plan Assessment: Patient is a 71-year-old male with past medical history of asthma, diabetes mellitus, renal stones status post lithotripsy, hypertension, hyperlipidemia, thoracic aorta aneurysm(stable), peripheral vascular disease presented to the ED today with chief complaint of sudden onset of fever and chills this afternoon accompanied by shortness of breath, diaphoresis and low back pain. # Sepsis most likely 2/2 cellulitis and bacteremia Vitals on arrival temperature 102, pulse 130, respiration 20. CBC significant for leukocytosis of 22.6 with a left shift. Elevated lactic acid levels. JOSE DANIEL remarkable for exquisitely tender and enlarged prostate on examination. Thus his sepsis was most attributable to prostatitis initially. Given the blood cultures growing group B strep, however, cellulitis ias deemed a more likely source of the infection. In any case, it was agreed by the urologist Dr. Garcia that there are no urological interventions warranted for the patient. Sepsis has resolved with IVF resuscitation and anmicrobial therapy. He is currently hemodynamically stable and afebrile with no signs of sepsis. * Cont to monitor for signs of infection and hemodynamic instability * Appreciate ID recs * Oxygen support and IV hydration as needed * Cont antibiotic therapy as discussed below # Bacteremia Most likely from the cellulitis in RLE. Bcx from 07/03 currently growing GBS. Patient received 2 days of vancyomycin. * Cont Cefazolin 2mg IV q8H per ID rec - day 2 * Appreciate ID recs # Cellulitis: Right foot cellulitis, chronic. Likely secondary to venous stasis. Venous doppler negative. * IV Cefazolin as per above-mentioned plan * Cont leg elevation. * Compression stockings * Cont Lasix 40mg PO QD for pedal edema. # Asthma exacerbation Patient presented with an acute onset of dyspnea. Differentials also included PE initially. No PE seen on CTA. No evidence of pneumonia. No history of heart failure. * Keep oxygen saturations above 92% * TRC nebs [id number] * Discontinue steroid today * Continue Symbicort * Pancultures pending # History of renal stones s/p lithotripsy x2 * Consulted by urology, follow recs * Outpatient f/u per uro rec # Diabetes mellitus * Novolog SSI with accuchekcs * Increase Levemer to 27U BID (takes 80U daily at home) * Diabetic diet # Essential hypertension * c/w metoprolol, lisinopril and Lasix. # Arthritis * Tramadol & muscle relaxant. - Diabetic diet - Mild pain pathway - DVT prophylaxis subcutaneous Lovenox - Full code Problem List: 1. Arthritis 2. Asthma 3. Diabetes mellitus 4. Essential hypertension 5. Hyperlipidemia 6. Staghorn calculus 7. Leukocytosis 8. Fever 9. Cellulitis 10. Sepsis 11. Chest pain 12. Prostatitis Pain Ratin Pain Location: 0 Pain Goal: Remain pain free Pain Plan: Mild pathway Tomorrow's Labs & Rationales: CBC to monitor for leukocytosis
[2016-07-05 06:29] VITALS: BP 132/80
[2016-07-05 08:08] LABS: ABSOLUTE BASOPHIL COUNT 0 /CUMM (0.0-0.2); ABSOLUTE EOSINOPHIL COUNT 0 /CUMM (0.0-0.7); ABSOLUTE GRANULOCYTE CT 17.5 /CUMM (1.4-6.5); ABSOLUTE LYMPH COUNT 1.5 /CUMM (1.2-3.4); ABSOLUTE MONOCYTE COUNT 1.1 /CUMM (0.10-0.60); BASOPHIL % 0 % (0.0-2.0); EOSINOPHIL % 0.1 % (0-5); HEMATOCRIT 44.7 % (42-52); MEAN CORPUSCULAR HGB 29.8 PG (27.0-31.0); MEAN CORPUSCULAR VOLUME 87.8 FL (80.0-94.0); MEAN PLATELET VOLUME 8.4 FL (7.4-10.4); PLATELET COUNT 282 /CUMM (130-400); RBC DISTRIBUTION WIDTH 14.6 % (11.5-14.5); RED BLOOD CELL CT 5.09 /CUMM (4.70-6.10); WHITE BLOOD CELL COUNT 20.1 /CUMM (4.8-10.8)
--- NOTE | 2016-07-05 12:09 | PN- Att Addend ---
Attending Addendum Attending Brief Note Patient sitting in the chair leg is elevated still swollen and red patient is a febrile no new changes on physical if his white count today was 20,100 still high yesterday was 24,900 and will check with infectious diseases if it's okay to continue present treatment and continue monitoring his white count closely and if he spikes any temperature is will repeat the blood cultures. Current Medications Sig/Marky Start time Last Medication Dose Route Stop Time Status Admin Acetaminophen 325 MG Q6P PRN 07/03 0200 AC PO Albuterol Sulfate 3 ML Q6P PRN 07/05 0900 AC INH Albuterol Sulfate 3 ML BID 07/03 1251 DC 07/04 INH 1928 Budesonide/ 2 PUF BID 07/03 1000 AC 07/05 Formoterol Fumarate INH 1136 Cefazolin Sodium 2 GM IQ8 07/04 1600 AC 07/05 N/A 1 UNIT IV 0814 Cyclobenzaprine HCl 10 MG AT BEDTIME NEED.. 07/03 0330 AC 07/03 PO 2154 Enoxaparin Sodium 40 MG DAILY 07/03 1000 AC 07/05 SC 0812 Furosemide 40 MG 7:30AM 07/06 0730 AC PO Furosemide 40 MG DAILY 07/04 1622 DC 07/05 PO 0811 Insulin Aspart 10 UNITS ONCE ONE 07/04 2230 DC 07/04 SC 07/04 2231 2240 Insulin Aspart 0 TIDAC 07/03 1700 AC 07/05 SC 0812 Insulin Detemir 25 UNITS BID 07/04 2200 AC 07/05 SC 1136 Insulin Detemir 20 UNITS BID 07/03 1000 DC 07/04 SC 0922 Lisinopril 40 MG DAILY 07/03 1000 AC 07/05 PO 0810 Methylprednisolone 40 MG DAILY 07/05 1000 AC 07/05 IV 07/05 1800 1136 Methylprednisolone 40 MG Q12 07/03 2200 DC 07/04 IV 0922 Metoprolol Succinate 50 MG DAILY 07/03 1000 AC 07/05 PO 0810 Montelukast Sodium 10 MG DAILY 07/03 1000 AC 07/05 PO 0809 Morphine Sulfate 2 MG Q4P PRN 07/03 0345 AC IV Patient Medication 1 ED .STK-MED ONE 07/04 1400 DC Teaching ED 07/04 1401 Pravastatin Sodium 20 MG QPM 07/03 2200 AC 07/04 PO 2239 Vancomycin HCl 1,500 MG Q12 07/03 1426 DC 07/04 Sodium Chloride 250 ML IV 1104 Laboratory Tests 07/05/16 0751: Anion Gap 13, Estimated GFR > 60, BUN/Creatinine Ratio 31.1 H, CBC w Diff NO MAN DIFF REQ, RBC 5.09, MCV 87.8, MCH 29.8, RDW 14.6 H, MPV 8.4, Gran % 87.0 H , Lymphocytes % 7.2 L, Monocytes % 5.7, Eosinophils % 0.1, Basophils % 0 L, Absolute Granulocytes 17.5 H, Absolute Lymphocytes 1.5, Absolute Monocytes 1.1 H, Absolute Eosinophils 0, Absolute Basophils 0, PUBS MCHC 34.0 Laboratory Tests 07/05/16 0751: Anion Gap 13, Estimated GFR > 60, BUN/Creatinine Ratio 31.1 H, CBC w Diff NO MAN DIFF REQ, RBC 5.09, MCV 87.8, MCH 29.8, RDW 14.6 H, MPV 8.4, Gran % 87.0 H , Lymphocytes % 7.2 L, Monocytes % 5.7, Eosinophils % 0.1, Basophils % 0 L, Absolute Granulocytes 17.5 H, Absolute Lymphocytes 1.5, Absolute Monocytes 1.1 H, Absolute Eosinophils 0, Absolute Basophils 0, PUBS MCHC 34.0 Vital Signs Date Time Temp Pulse Resp B/P Pulse O2 O2 Flow FiO2 Ox Delivery Rate 07/05 0825 96 Room Air Room Air 07/05 08 90 130/80 07/05 08 90 130/80 07/05 0629 97.8 84 20 132/80 94 Room Air
--- NOTE | 2016-07-05 14:54 | PN- Infect Dx ---
Subjective Subjective: Afebrile on steroids. He offers no complaints. Objective Last 24 Hrs of Vital Signs/I&O Vital Signs Date Time Temp Pulse Resp B/P Pulse O2 O2 Flow FiO2 Ox Delivery Rate 07/05 824 96 Room Air Room Air 07/05 08 90 130/80 07/05 0810 90 130/80 07/05 0629 97.8 84 20 132/80 94 Room Air 07/05 0000 96 Room Air 07/04 2232 97.6 93 20 130/80 96 Room Air 07/04 1925 94 Room Air 07/04 1600 Room Air 07/04 1441 97.8 91 20 134/68 95 Intake & Output 07/05 1600 07/05 0800 07/05 0000 Intake Total 600 450 480 Output Total 500 Balance 100 450 480 Intake, IV 150 Intake, Oral 600 300 480 Output, Urine 500 Physical Exam Other Physical Findings: He appears comfortable in no acute distress Lungs are clear Abdomen soft, nontender with positive bowel sounds Extremities increased bilateral lower extremity edema, right greater than left, with marked erythema of the right leg, warm to touch, with no tenderness Results Last 24 Hours of Lab Results: Laboratory Tests 07/05 750 Chemistry Sodium (137 - 145 mmol/L) 135 L Potassium (3.5 - 5.1 mmol/L) 4.8 Chloride (98 - 107 mmol/L) 92 L Carbon Dioxide (22 - 30 mmol/L) 29 Anion Gap (5 - 16) 13 BUN (9 - 20 mg/dL) 28 H Creatinine (0.7 - 1.2 mg/dL) 0.9 Estimated GFR (>60 ml/min) > 60 BUN/Creatinine Ratio (7 - 25 %) 31.1 H Hematology CBC w Diff NO MAN DIFF REQ WBC (4.8 - 10.8 /CUMM) 20.1 H RBC (4.70 - 6.10 /CUMM) 5.09 Hgb (14.0 - 18.0 G/DL) 15.2 Hct (42 - 52 %) 44.7 MCV (80.0 - 94.0 FL) 87.8 MCH (27.0 - 31.0 PG) 29.8 RDW (11.5 - 14.5 %) 14.6 H Plt Count (130 - 400 /CUMM) 282 MPV (7.4 - 10.4 FL) 8.4 Gran % (42.2 - 75.2 %) 87.0 H Lymphocytes % (20.5 - 51.1 %) 7.2 L Monocytes % (1.7 - 9.3 %) 5.7 Eosinophils % (0 - 5 %) 0.1 Basophils % (0.0 - 2.0 %) 0 L Absolute Granulocytes (1.4 - 6.5 /CUMM) 17.5 H Absolute Lymphocytes (1.2 - 3.4 /CUMM) 1.5 Absolute Monocytes (0.10 - 0.60 /CUMM) 1.1 H Absolute Eosinophils (0.0 - 0.7 /CUMM) 0 Absolute Basophils (0.0 - 0.2 /CUMM) 0 PUBS MCHC (33.0 - 37.0 G/DL) 34.0 Last 24 Hours of Andrea Results: No recent cultures Assessment/Plan Impression: Clinically improving with temperatures normal (on steroids) and with white blood cell count decreasing, though still elevated, likely secondary to the steroids, now on Cefazolin Day 3 of treatment for Group B strep sepsis, presumably secondary to cellulitis of the right leg. His lower extremity edema appears to be increased, likely secondary to the fact that Lasix had been held on admission , but it has now been restarted. Suggestion: 1. Continue to taper steroids 2. Agree with restarting diuretics to reduce lower extremity edema 3. Elevate right leg 4. Continue Cefazolin 2 g IV every 8 hours
[2016-07-05 15:50] VITALS: BP 124/78
[2016-07-05 22:49] VITALS: BP 128/80
--- NOTE | 2016-07-06 06:25 | PN- Housestaff ---
Subjective Follow-up For: Sepsis Cellulitis Subjective: Patient seen and examined at bedside. No acute events overnight. Patient maintaining negative net balance (about -800mL) since resuming Lasix. He feels that his RLE is still more swollen than his baseline. Erythema also slightly worse without significant improvement. He is otherwise clinically and hemodynamically stable with no new complaints. Getting out of bed and walking around in the room. Denies shortness of breath, cough, headache, fever, chills, chest pain, palpitations, nausea, vomiting, diarrhea, blurred/double vision, dizziness/lightheadedness Review of Systems Constitutional: Reports: see HPI. Objective Last 24 Hrs of Vital Signs/I&O Vital Signs Date Time Temp Pulse Resp B/P Pulse O2 O2 Flow FiO2 Ox Delivery Rate 07/06 0732 97.7 80 18 136/80 97 Room Air 07/06 0000 94 Room Air 07/05 2249 98.0 81 20 128/80 94 Room Air 07/05 1900 Room Air 07/05 1550 97.5 83 20 124/78 95 07/05 0825 96 Room Air Room Air 07/05 0810 90 130/80 07/05 0810 90 130/80 07/05 0800 Room Air Intake & Output 07/06 0800 07/06 0000 07/05 1600 Intake Total 047 786 9563 Output Total 1325 1850 2100 Balance -875 -1250 0 Intake, IV 150 400 Intake, Oral 213 937 0357 Output, Urine 1325 1850 2100 Physical Exam General Appearance: Alert, Oriented X3, Cooperative, No Acute Distress Other Physical Findings: Skin Moderate erythema/edema but no TTP in the RLE HEENT Atraumatic, PERRLA, EOMI, Mucous Membr. moist/pink Neck Supple Cardiovascular No m/r/g, regular rhythm and rate Lungs Clear to Auscultation, Normal Air Movement Abdomen Normal Bowel Sounds, Soft, No Tenderness Neurological Normal Speech Extremities Trace edema in LLE, 1+ edema in RLE Current Medications: Current Medications Sig/Marky Start time Last Medication Dose Route Stop Time Status Admin Acetaminophen 325 MG .STK-MED ONE 07/05 223 DC PO 07/05 223 Acetaminophen 325 MG Q6P PRN 07/03 0200 AC 07/05 PO 223 Albuterol Sulfate 3 ML Q6P PRN 07/05 0900 AC INH Albuterol Sulfate 3 ML BID 07/03 1251 DC 07/04 INH 1928 Budesonide/ 2 PUF BID 07/03 1000 AC 07/05 Formoterol Fumarate INH 2047 Cefazolin Sodium 2 GM IQ8 07/04 1600 AC 07/06 N/A 1 UNIT IV 0054 Cyclobenzaprine HCl 10 MG AT BEDTIME NEED.. 07/03 0330 AC 07/03 PO 2154 Enoxaparin Sodium 40 MG DAILY 07/03 1000 AC 07/05 SC 0812 Furosemide 40 MG 7:30AM 07/06 0730 AC PO Furosemide 40 MG DAILY 07/04 1622 DC 07/05 PO 0811 Insulin Aspart 0 TIDAC 07/05 1700 AC 07/05 SC 1759 Insulin Aspart 0 TIDAC 07/03 1700 DC 07/05 SC 1317 Insulin Detemir 27 UNITS BID 07/05 2200 AC 07/05 SC 2047 Insulin Detemir 25 UNITS BID 07/04 2200 DC 07/05 SC 1136 Lisinopril 40 MG DAILY 07/03 1000 AC 07/05 PO 0810 Methylprednisolone 40 MG DAILY 07/05 1000 DC 07/05 IV 07/05 1800 1136 Metoprolol Succinate 50 MG DAILY 07/03 1000 AC 07/05 PO 0810 Montelukast Sodium 10 MG DAILY 07/03 1000 AC 07/05 PO 0809 Morphine Sulfate 2 MG Q4P PRN 07/03 0345 AC IV Patient Medication 1 ED .STK-MED ONE 07/05 1427 FL Teaching ED 07/05 1428 Pravastatin Sodium 20 MG QPM 07/03 2200 AC 07/05 PO 2047 Last 24 Hrs of Lab/Andrea Results Last 24 Hrs of Labs/Mics: Laboratory Tests 07/06/16 0615: CBC w Diff Pending, WBC Pending, RBC Pending, Hgb Pending, Hct Pending, MCV Pending, MCH Pending, RDW Pending, Plt Count Pending, MPV Pending, PUBS MCHC Pending 07/05/16 0751: Anion Gap 13, Estimated GFR > 60, BUN/Creatinine Ratio 31.1 H, CBC w Diff NO MAN DIFF REQ, RBC 5.09, MCV 87.8, MCH 29.8, RDW 14.6 H, MPV 8.4, Gran % 87.0 H , Lymphocytes % 7.2 L, Monocytes % 5.7, Eosinophils % 0.1, Basophils % 0 L, Absolute Granulocytes 17.5 H, Absolute Lymphocytes 1.5, Absolute Monocytes 1.1 H, Absolute Eosinophils 0, Absolute Basophils 0, PUBS MCHC 34.0 Assessment/Plan Assessment: Patient is a 71-year-old male with past medical history of asthma, diabetes mellitus, renal stones status post lithotripsy, hypertension, hyperlipidemia, thoracic aorta aneurysm(stable), peripheral vascular disease presented to the ED today with chief complaint of sudden onset of fever and chills this afternoon accompanied by shortness of breath, diaphoresis and low back pain. # Sepsis most likely 2/2 cellulitis and bacteremia Vitals on arrival temperature 102, pulse 130, respiration 20. CBC significant for leukocytosis of 22.6 with a left shift. Elevated lactic acid levels. JOSE DANIEL remarkable for exquisitely tender and enlarged prostate on examination. Thus his sepsis was most attributable to prostatitis initially. Given the blood cultures growing group B strep, however, cellulitis ias deemed a more likely source of the infection. In any case, it was agreed by the urologist Dr. Garcia that there are no urological interventions warranted for the patient. Sepsis has resolved with IVF resuscitation and anmicrobial therapy. He is currently hemodynamically stable and afebrile with no signs of sepsis. * Cont to monitor for signs of infection and hemodynamic instability * Appreciate ID recs * Oxygen support and IV hydration as needed * Cont antibiotic therapy as discussed below # Cellulitis: Right foot cellulitis, chronic. Likely secondary to venous stasis. Venous doppler negative. * Cont Cefazolin 2mg IV q8H per ID rec - day 3 * Cont leg elevation. * Compression stockings * Cont Lasix 40mg PO QD for pedal edema. * Cont home dose of Lasix 40mg PO daily * Give one time dose of IV Lasix 20mg given persistent swelling in the RLE # Bacteremia Most likely from the cellulitis in RLE. Bcx from 1 currently growing GBS. Patient received 2 days of vancyomycin. * IV Cefazolin as per above-mentioned plan * Appreciate ID recs # Asthma exacerbation Patient presented with an acute onset of dyspnea. Differentials also included PE initially. No PE seen on CTA. No evidence of pneumonia. No history of heart failure. * Keep oxygen saturations above 92% * TRC nebs [id number] * Discontinue steroid today * Continue Symbicort * Pancultures pending # History of renal stones s/p lithotripsy x2 * Consulted by urology, follow recs * Outpatient f/u per uro rec # Diabetes mellitus * Novolog SSI with accuchekcs * Increase Levemer to 27U BID (takes 80U daily at home) * Diabetic diet # Essential hypertension * c/w metoprolol, lisinopril and Lasix. # Arthritis * Tramadol & muscle relaxant. - Diabetic diet - Mild pain pathway - DVT prophylaxis subcutaneous Lovenox - Full code Problem List: 1. Arthritis 2. Asthma 3. Diabetes mellitus 4. Essential hypertension 5. Hyperlipidemia 6. Staghorn calculus 7. Leukocytosis 8. Fever 9. Cellulitis 10. Sepsis 11. Chest pain 12. Prostatitis Pain Ratin Pain Location: 0 Pain Goal: Remain pain free Pain Plan: Mild pain pathway Tomorrow's Labs & Rationales: CBC to monitor for leukocytosis
[2016-07-06 07:32] VITALS: BP 136/80
[2016-07-06 08:01] LABS: ABSOLUTE BASOPHIL COUNT 0 /CUMM (0.0-0.2); ABSOLUTE EOSINOPHIL COUNT 0 /CUMM (0.0-0.7); ABSOLUTE GRANULOCYTE CT 11.2 /CUMM (1.4-6.5); ABSOLUTE LYMPH COUNT 1.8 /CUMM (1.2-3.4); ABSOLUTE MONOCYTE COUNT 0.8 /CUMM (0.10-0.60); BASOPHIL % 0.3 % (0.0-2.0); EOSINOPHIL % 0.2 % (0-5); GRANULOCYTE % 80.7 % (42.2-75.2); HEMATOCRIT 45.6 % (42-52); MEAN CORPUSCULAR HGB 29.6 PG (27.0-31.0); MEAN CORPUSCULAR HGB CONC 33.5 G/DL (33.0-37.0); MEAN CORPUSCULAR VOLUME 88.2 FL (80.0-94.0); MEAN PLATELET VOLUME 8.9 FL (7.4-10.4); PLATELET COUNT 301 /CUMM (130-400); RBC DISTRIBUTION WIDTH 14.6 % (11.5-14.5); RED BLOOD CELL CT 5.17 /CUMM (4.70-6.10); WHITE BLOOD CELL COUNT 13.9 /CUMM (4.8-10.8)
[2016-07-06 14:20] VITALS: BP 120/80
--- NOTE | 2016-07-06 14:49 | PN- Infect Dx ---
Subjective Subjective: Afebrile. He reports mild abdominal discomfort with eating. Objective Last 24 Hrs of Vital Signs/I&O Vital Signs Date Time Temp Pulse Resp B/P Pulse O2 O2 Flow FiO2 Ox Delivery Rate 07/06 1420 98.8 74 20 120/80 98 07/06 0947 70 144/76 07/06 0946 70 144/76 07/06 0732 97.7 80 18 136/80 97 Room Air 07/06 0000 94 Room Air 07/05 2249 98.0 81 20 128/80 94 Room Air 07/05 1900 Room Air 07/05 1550 97.5 83 20 124/78 95 Intake & Output 07/06 1600 07/06 0800 07/06 0000 Intake Total 450 600 Output Total 200 1325 1850 Balance -200 -875 -1250 Intake, IV 150 Intake, Oral 300 600 Output, Urine 200 1325 1850 Physical Exam Other Physical Findings: He appears comfortable in no acute distress Lungs are clear Extremities persistent edema both lower extremities, right greater than left, with deepening erythema, nontender to palpation Results Last 24 Hours of Lab Results: Laboratory Tests 07/06 614 Hematology CBC w Diff NO MAN DIFF REQ WBC (4.8 - 10.8 /CUMM) 13.9 H RBC (4.70 - 6.10 /CUMM) 5.17 Hgb (14.0 - 18.0 G/DL) 15.3 Hct (42 - 52 %) 45.6 MCV (80.0 - 94.0 FL) 88.2 MCH (27.0 - 31.0 PG) 29.6 RDW (11.5 - 14.5 %) 14.6 H Plt Count (130 - 400 /CUMM) 301 MPV (7.4 - 10.4 FL) 8.9 Gran % (42.2 - 75.2 %) 80.7 H Lymphocytes % (20.5 - 51.1 %) 12.7 L Monocytes % (1.7 - 9.3 %) 6.1 Eosinophils % (0 - 5 %) 0.2 Basophils % (0.0 - 2.0 %) 0.3 Absolute Granulocytes (1.4 - 6.5 /CUMM) 11.2 H Absolute Lymphocytes (1.2 - 3.4 /CUMM) 1.8 Absolute Monocytes (0.10 - 0.60 /CUMM) 0.8 H Absolute Eosinophils (0.0 - 0.7 /CUMM) 0 Absolute Basophils (0.0 - 0.2 /CUMM) 0 PUBS MCHC (33.0 - 37.0 G/DL) 33.5 Last 24 Hours of Andrea Results: No recent cultures Assessment/Plan Impression: Continues to improve with temperatures normal and with white blood cell count decreasing on Cefazolin, Day 4 of treatment for Group B strep sepsis secondary to cellulitis of the right leg. His lower extremity edema appears to be increasing despite resumption of Lasix. Suggestion: 1. Consider need for increasing the dose of Lasix 2. Elevate right leg 3. Continue Cefazolin, with a change to Keflex 500 mg po every 6 hours if continues to improve to complete a 14 day course of treatment
--- NOTE | 2016-07-06 18:20 | PN- Att Addend ---
Attending Addendum Attending Brief Note Patient feeling and looking better today, the leg is maybe a little less red and swollen and less tender. Fever. White count is down to 13,900 today and 20,000 yesterday no other changes. Will check with infectious diseases to see how much longer he needs IV antibiotics Current Medications Sig/Marky Start time Last Medication Dose Route Stop Time Status Admin Acetaminophen 325 MG .STK-MED ONE 07/05 2230 DC PO 07/05 2231 Acetaminophen 325 MG Q6P PRN 07/03 0200 AC 07/05 PO 2233 Albuterol Sulfate 3 ML Q6P PRN 07/05 0900 AC INH Budesonide/ 2 PUF BID 07/03 1000 AC 07/06 Formoterol Fumarate INH 0947 Cefazolin Sodium 2 GM IQ8 07/04 1600 AC 07/06 N/A 1 UNIT IV 1720 Cyclobenzaprine HCl 10 MG AT BEDTIME NEED.. 07/03 0330 AC 07/03 PO 2154 Enoxaparin Sodium 40 MG DAILY 07/03 1000 AC 07/06 SC 0945 Furosemide 40 MG .STK-MED ONE 07/06 0921 DC IV 07/06 0922 Furosemide 20 MG ONCE ONE 07/06 0815 DC 07/06 IV 07/06 0816 0948 Furosemide 40 MG 7:30AM 07/06 0730 AC 07/06 PO 0836 Insulin Aspart 0 TIDAC 07/07 0800 DC SC Insulin Aspart 0 TIDAC 07/06 1745 AC 07/06 HI 1739 Insulin Aspart 0 TIDAC 07/05 1700 DC 07/06 HI 1241 Insulin Detemir 30 UNITS BID 07/06 1000 AC 07/06 SC 0945 Insulin Detemir 27 UNITS BID 07/05 2200 DC 07/05 HI 2047 Insulin Human Regular 0 Q6 07/06 1800 CAN SC Lisinopril 40 MG DAILY 07/03 1000 AC 07/06 PO 0946 Metoprolol Succinate 50 MG DAILY 07/03 1000 AC 07/06 PO 0947 Montelukast Sodium 10 MG DAILY 07/03 1000 AC 07/06 PO 0947 Morphine Sulfate 2 MG Q4P PRN 07/03 0345 AC IV Pravastatin Sodium 20 MG QPM 07/03 2200 AC 07/05 PO 2047 Laboratory Tests 07/06/16 0615: CBC w Diff NO MAN DIFF REQ, RBC 5.17, MCV 88.2, MCH 29.6, RDW 14.6 H, MPV 8.9, Gran % 80.7 H, Lymphocytes % 12.7 L, Monocytes % 6.1, Eosinophils % 0.2, Basophils % 0.3, Absolute Granulocytes 11.2 H, Absolute Lymphocytes 1.8, Absolute Monocytes 0.8 H, Absolute Eosinophils 0, Absolute Basophils 0, PUBS MCHC 33.5 Vital Signs Date Time Temp Pulse Resp B/P Pulse O2 O2 Flow FiO2 Ox Delivery Rate 07/06 1420 98.8 74 20 120/80 98 Intake & Output 07/06 1600 Intake Total 860 Output Total 2250 Balance -1390 Intake, IV 140 Intake, Oral 720 Output, Urine 2250
[2016-07-06 22:12] VITALS: BP 110/62
[2016-07-07 06:33] VITALS: BP 110/70
--- NOTE | 2016-07-07 07:27 | PN- Housestaff ---
Assessment/Plan Assessment: Patient is a 71-year-old male with past medical history of asthma, diabetes mellitus, renal stones status post lithotripsy, hypertension, hyperlipidemia, thoracic aorta aneurysm(stable), peripheral vascular disease presented to the ED today with chief complaint of sudden onset of fever and chills this afternoon accompanied by shortness of breath, diaphoresis and low back pain. # Sepsis most likely 2/2 cellulitis and bacteremia Vitals on arrival temperature 102, pulse 130, respiration 20. CBC significant for leukocytosis of 22.6 with a left shift. Elevated lactic acid levels. JOSE DANIEL remarkable for exquisitely tender and enlarged prostate on examination. Thus his sepsis was most attributable to prostatitis initially. Given the blood cultures growing group B strep, however, cellulitis ias deemed a more likely source of the infection. In any case, it was agreed by the urologist Dr. Garcia that there are no urological interventions warranted for the patient. Sepsis has resolved with IVF resuscitation and anmicrobial therapy. He is currently hemodynamically stable and afebrile with no signs of sepsis. * Cont to monitor for signs of infection and hemodynamic instability * Appreciate ID recs * Oxygen support and IV hydration as needed * Cont antibiotic therapy as discussed below # Cellulitis: Right foot cellulitis, chronic. Likely secondary to venous stasis. Venous doppler negative. * Cont Cefazolin 2mg IV q8H per ID rec - day 3 * Cont leg elevation. * Compression stockings * Cont Lasix 40mg PO QD for pedal edema. * Cont home dose of Lasix 40mg PO daily * Give one time dose of IV Lasix 20mg given persistent swelling in the RLE # Bacteremia Most likely from the cellulitis in RLE. Bcx from 1/3 currently growing GBS. Patient received 2 days of vancyomycin. * IV Cefazolin as per above-mentioned plan * Appreciate ID recs # Asthma exacerbation Patient presented with an acute onset of dyspnea. Differentials also included PE initially. No PE seen on CTA. No evidence of pneumonia. No history of heart failure. * Keep oxygen saturations above 92% * TRC nebs [id number] * Discontinue steroid today * Continue Symbicort * Pancultures pending # History of renal stones s/p lithotripsy x2 * Consulted by urology, follow recs * Outpatient f/u per uro rec # Diabetes mellitus * Novolog SSI with accuchekcs * Increase Levemer to 27U BID (takes 80U daily at home) * Diabetic diet # Essential hypertension * c/w metoprolol, lisinopril and Lasix. # Arthritis * Tramadol & muscle relaxant. - Diabetic diet - Mild pain pathway - DVT prophylaxis subcutaneous Lovenox - Full code
[2016-07-07 08:14] LABS: ABSOLUTE BASOPHIL COUNT 0 /CUMM (0.0-0.2); ABSOLUTE EOSINOPHIL COUNT 0.2 /CUMM (0.0-0.7); ABSOLUTE GRANULOCYTE CT 8.1 /CUMM (1.4-6.5); ABSOLUTE LYMPH COUNT 2.2 /CUMM (1.2-3.4); BASOPHIL % 0.3 % (0.0-2.0); EOSINOPHIL % 1.4 % (0-5); GRANULOCYTE % 70.6 % (42.2-75.2); HEMATOCRIT 49.8 % (42-52); MEAN CORPUSCULAR HGB 29.2 PG (27.0-31.0); MEAN CORPUSCULAR HGB CONC 33.3 G/DL (33.0-37.0); MEAN CORPUSCULAR VOLUME 87.8 FL (80.0-94.0); MEAN PLATELET VOLUME 8.6 FL (7.4-10.4); PLATELET COUNT 310 /CUMM (130-400); RBC DISTRIBUTION WIDTH 14.3 % (11.5-14.5); RED BLOOD CELL CT 5.67 /CUMM (4.70-6.10); WHITE BLOOD CELL COUNT 11.5 /CUMM (4.8-10.8)
--- NOTE | 2016-07-07 09:02 | PN- Att Addend ---
Attending Addendum Attending Brief Note Covering attending note. Patient is sitting out of bed to chair comfortable with his legs elevated this marked decrease the redness and swelling of his right leg. Currently in IV antibiotics. Intake & Output 07/07 1600 07/07 0800 07/07 0000 Intake Total 50 Output Total 1100 Balance -1050 Intake, IV 50 Output, Urine 1100 Current Medications Sig/Marky Start time Last Medication Dose Route Stop Time Status Admin Acetaminophen 325 MG Q6P PRN 07/03 0200 AC 07/05 PO 2233 Albuterol Sulfate 3 ML Q6P PRN 07/05 0900 AC INH Budesonide/ 2 PUF BID 07/03 1000 AC 07/06 Formoterol Fumarate INH 2109 Cefazolin Sodium 2 GM IQ8 07/04 1600 AC 07/07 N/A 1 UNIT IV 0833 Cyclobenzaprine HCl 10 MG AT BEDTIME NEED.. 07/03 0330 AC 07/03 PO 2154 Enoxaparin Sodium 40 MG DAILY 07/03 1000 AC 07/06 SC 0945 Furosemide 40 MG .STK-MED ONE 07/06 0921 DC IV 07/06 0922 Furosemide 40 MG 7:30AM 07/06 0730 AC 07/07 PO 0833 Insulin Aspart 0 TIDAC 07/07 0800 DC SC Insulin Aspart 0 TIDAC 07/06 1745 AC 07/07 SC 0833 Insulin Aspart 0 TIDAC 07/05 1700 DC 07/06 SC 1241 Insulin Detemir 30 UNITS BID 07/06 1000 AC 07/06 SC 2108 Insulin Human Regular 0 Q6 07/06 1800 CAN SC Lisinopril 40 MG DAILY 07/03 1000 AC 07/06 PO 0946 Metoprolol Succinate 50 MG DAILY 07/03 1000 AC 07/06 PO 0947 Montelukast Sodium 10 MG DAILY 07/03 1000 AC 07/06 PO 0947 Morphine Sulfate 2 MG Q4P PRN 07/03 0345 AC IV Pravastatin Sodium 20 MG QPM 07/03 2200 AC 07/06 PO 2108 Laboratory Tests 07/07 617 Chemistry Sodium (137 - 145 mmol/L) 134 L Potassium (3.5 - 5.1 mmol/L) 5.0 Chloride (98 - 107 mmol/L) 92 L Carbon Dioxide (22 - 30 mmol/L) 27 Anion Gap (5 - 16) 15 BUN (9 - 20 mg/dL) 27 H Creatinine (0.7 - 1.2 mg/dL) 0.9 Estimated GFR (>60 ml/min) > 60 BUN/Creatinine Ratio (7 - 25 %) 30.0 H Hematology CBC w Diff NO MAN DIFF REQ WBC (4.8 - 10.8 /CUMM) 11.5 H RBC (4.70 - 6.10 /CUMM) 5.67 Hgb (14.0 - 18.0 G/DL) 16.6 Hct (42 - 52 %) 49.8 MCV (80.0 - 94.0 FL) 87.8 MCH (27.0 - 31.0 PG) 29.2 RDW (11.5 - 14.5 %) 14.3 Plt Count (130 - 400 /CUMM) 310 MPV (7.4 - 10.4 FL) 8.6 Gran % (42.2 - 75.2 %) 70.6 Lymphocytes % (20.5 - 51.1 %) 18.7 L Monocytes % (1.7 - 9.3 %) 9.0 Eosinophils % (0 - 5 %) 1.4 Basophils % (0.0 - 2.0 %) 0.3 Absolute Granulocytes (1.4 - 6.5 /CUMM) 8.1 H Absolute Lymphocytes (1.2 - 3.4 /CUMM) 2.2 Absolute Monocytes (0.10 - 0.60 /CUMM) 1.0 H Absolute Eosinophils (0.0 - 0.7 /CUMM) 0.2 Absolute Basophils (0.0 - 0.2 /CUMM) 0 PUBS MCHC (33.0 - 37.0 G/DL) 33.3 Vital Signs Date Time Temp Pulse Resp B/P Pulse O2 O2 Flow FiO2 Ox Delivery Rate 07/07 0849 96 Room Air 07/07 0633 97.9 97 20 110/70 93 Room Air 07/06 2212 97.9 87 20 110/62 95 Room Air 07/06 1420 98.8 74 20 120/80 98 07/06 0947 70 144/76 07/06 0946 70 144/76 Intake & Output 07/07 1600 07/07 0800 07/07 0000 Intake Total 50 Output Total 1100 Balance -1050 Intake, IV 50 Output, Urine 1100 Assessment Cellulitis of the right leg Area did switch to by mouth Augmentin 875 twice a day Ambulate the patient to palpation for discharge tomorrow.
--- NOTE | 2016-07-07 09:19 | PN- Housestaff ---
Subjective Follow-up For: Cellulitis Subjective: Patient seen and examined at bedside. No acute events overnight. Cellulitis looks slightly better with reduced edema. Still more swollen than his baseline as per the patient. He is maintaining a negative net balance (over 2L) after getting an extra dose of Lasix intravenously yest. He agrees to trying another dose today. Remains clinically and hemodynamically stable with no new complaints. Getting out of bed and walking around in the room. Denies shortness of breath, cough, headache, fever, chills, chest pain, palpitations, nausea, vomiting, diarrhea, blurred/double vision, dizziness/lightheadedness Review of Systems Constitutional: Reports: see HPI. Objective Last 24 Hrs of Vital Signs/I&O Vital Signs Date Time Temp Pulse Resp B/P Pulse O2 O2 Flow FiO2 Ox Delivery Rate 07/07 0633 97.9 97 20 110/70 93 Room Air 07/06 2212 97.9 87 20 110/62 95 Room Air 07/06 1420 98.8 74 20 120/80 98 07/06 0947 70 144/76 07/06 0946 70 144/76 Intake & Output 07/07 1600 07/07 0800 07/07 0000 Intake Total 50 Output Total 1100 Balance -1050 Intake, IV 50 Output, Urine 1100 Physical Exam General Appearance: Alert, Oriented X3, Cooperative, No Acute Distress Other Physical Findings: Skin Moderate erythema/edema but no TTP in the RLE HEENT Atraumatic, PERRLA, EOMI, Mucous Membr. moist/pink Neck Supple Cardiovascular No m/r/g, regular rhythm and rate Lungs Clear to Auscultation, Normal Air Movement Abdomen Normal Bowel Sounds, Soft, No Tenderness Neurological Normal Speech Extremities Trace edema in LLE, 1+ edema in RLE Current Medications: Current Medications Sig/Marky Start time Last Medication Dose Route Stop Time Status Admin Acetaminophen 325 MG Q6P PRN 07/03 0200 AC 07/05 PO 2233 Albuterol Sulfate 3 ML Q6P PRN 07/05 0900 AC INH Budesonide/ 2 PUF BID 07/03 1000 AC 07/06 Formoterol Fumarate INH 2109 Cefazolin Sodium 2 GM IQ8 07/04 1600 AC 07/07 N/A 1 UNIT IV 0023 Cyclobenzaprine HCl 10 MG AT BEDTIME NEED.. 07/03 0330 AC 07/03 PO 2154 Enoxaparin Sodium 40 MG DAILY 07/03 1000 AC 07/06 SC 0945 Furosemide 40 MG .STK-MED ONE 07/06 0921 DC IV 07/06 0922 Furosemide 20 MG ONCE ONE 07/06 0815 DC 07/06 IV 07/06 0816 0948 Furosemide 40 MG 7:30AM 07/06 0730 AC 07/06 PO 0836 Insulin Aspart 0 TIDAC 07/07 0800 DC SC Insulin Aspart 0 TIDAC 07/06 1745 AC 07/06 SC 1739 Insulin Aspart 0 TIDAC 07/05 1700 DC 07/06 SC 1241 Insulin Detemir 30 UNITS BID 07/06 1000 AC 07/06 SC 2108 Insulin Detemir 27 UNITS BID 07/05 2200 DC 07/05 SC 2047 Insulin Human Regular 0 Q6 07/06 1800 CAN SC Lisinopril 40 MG DAILY 07/03 1000 AC 07/06 PO 0946 Metoprolol Succinate 50 MG DAILY 07/03 1000 AC 07/06 PO 0947 Montelukast Sodium 10 MG DAILY 07/03 1000 AC 07/06 PO 0947 Morphine Sulfate 2 MG Q4P PRN 07/03 0345 AC IV Pravastatin Sodium 20 MG QPM 07/03 2200 AC 07/06 PO 2108 Last 24 Hrs of Lab/Andrea Results Last 24 Hrs of Labs/Mics: Laboratory Tests 07/07/16 0618: Anion Gap 15, Estimated GFR > 60, BUN/Creatinine Ratio 30.0 H, CBC w Diff Pending, WBC Pending, RBC Pending, Hgb Pending, Hct Pending, MCV Pending, MCH Pending, RDW Pending, Plt Count Pending, MPV Pending, PUBS MCHC Pending Assessment/Plan Assessment: Patient is a 71-year-old male with past medical history of asthma, diabetes mellitus, renal stones status post lithotripsy, hypertension, hyperlipidemia, thoracic aorta aneurysm(stable), peripheral vascular disease presented to the ED today with chief complaint of sudden onset of fever and chills this afternoon accompanied by shortness of breath, diaphoresis and low back pain. # Sepsis most likely 2/2 cellulitis and bacteremia Vitals on arrival temperature 102, pulse 130, respiration 20. CBC significant for leukocytosis of 22.6 with a left shift. Elevated lactic acid levels. JOSE DANIEL remarkable for exquisitely tender and enlarged prostate on examination. Thus his sepsis was most attributable to prostatitis initially. Given the blood cultures growing group B strep, however, cellulitis ias deemed a more likely source of the infection. In any case, it was agreed by the urologist Dr. Garcia that there are no urological interventions warranted for the patient. Sepsis has resolved with IVF resuscitation and anmicrobial therapy. He is currently hemodynamically stable and afebrile with no signs of sepsis. * Cont to monitor for signs of infection and hemodynamic instability * Appreciate ID recs * Oxygen support and IV hydration as needed * Cont antibiotic therapy as discussed below # Cellulitis: Right foot cellulitis, chronic. Likely secondary to venous stasis. Venous doppler negative. * Cont Cefazolin 2mg IV q8H per ID rec - day 4 * May transition to Keflex 500 mg po Q6 (complete 14 day course) if cellulitis continues to improve * Cont leg elevation. * Cont home dose of Lasix 40mg PO daily * Give one time dose of IV Lasix 20mg given persistent swelling in the RLE # Bacteremia Most likely from the cellulitis in RLE. Bcx from 07/03 currently growing GBS. Patient received 2 days of vancyomycin. * Antibiotic therapy as per above-mentioned plan * Appreciate ID recs # Asthma exacerbation Patient presented with an acute onset of dyspnea. Differentials also included PE initially. No PE seen on CTA. No evidence of pneumonia. No history of heart failure. Completed steroid taper. * Keep oxygen saturations above 92% * TRC nebs [id number] * Continue Symbicort * Pancultures pending # History of renal stones s/p lithotripsy x2 * Consulted by urology, follow recs * Outpatient f/u per uro rec # Diabetes mellitus FSGs in a stable range. * Novolog SSI with accuchekcs * Cont Levemer to 30U BID (takes 80U daily at home) * Diabetic diet # Essential hypertension * c/w metoprolol, lisinopril and Lasix. # Arthritis * Tramadol & muscle relaxant. - Diabetic diet - Mild pain pathway - DVT prophylaxis subcutaneous Lovenox - Full code Problem List: 1. Sepsis 2. Cellulitis 3. Fever 4. Leukocytosis Pain Ratin Pain Location: 0 Pain Goal: Remain pain free Pain Plan: Mild pain pathway Tomorrow's Labs & Rationales: CBC to monitor for infection
[2016-07-07 14:54] VITALS: BP 122/80
[2016-07-07] MEDS ORDERED: CEPHALEXIN500 M3 PO (17:44)
--- NOTE | 2016-07-07 17:51 | Patient Discharge Instructions ---
Discharge Instructions General Discharge Information You were seen/treated for: Cellulitis Sepsis Special Instructions: 1. Please follow up with Dr. Ardon (primary care) within a week of discharge. 2. Please take antibiotics until 07/15/16. 3. Please return to ED if you have fever, chills, tenderness/swelling/redness in the leg that do not improve or worsen. Acute Coronary Syndrome Inclusion Criteria At DC or during hospital stay patient has or had the following: ACS DIAGNOSIS No Discharge Core Measures Meds if any: Prescribed or Continued at Discharge Meds if any: NOT Prescribed or Continued at Discharge Congestive Heart Failure Inclusion Criteria At DC or during hospital stay patient has or had the following: CHF DIAGNOSIS No Discharge Core Measures Meds if any: Prescribed or Continued at Discharge Meds if any: NOT Prescribed or Continued at Discharge Cerebrovascular accident Inclusion Criteria At DC or during hospital stay patient has or had the following: CVA/TIA Diagnosis No Discharge Core Measures Meds if any: Prescribed or Continued at Discharge Meds if any: NOT Prescribed or Continued at Discharge Venous thromboembolism Inclusion Criteria VTE Diagnosis No VTE Type NONE VTE Confirmed by (Test) NONE Discharge Core Measures - Per Current guidelines, there needs to be overlap - treatment for the first 5 days of Warfarin therapy. - If discharged on Warfarin prior to 5 days of - overlap therapy, the patient will need to be - assessed for post discharge needs including - *Post discharge parental anticoagulation - *Warfarin and/or parental anticoagulation education - *Follow up date to check INR post discharge At least 5 days overlap therapy as Inpatient No Meds if any: Prescribed or Continued at Discharge Note: Overlap Therapy is Warfarin and Anticoagulant Meds if any: NOT Prescribed or Continued at Discharge
[2016-07-07 21:52] VITALS: BP 127/75
[2016-07-08 06:00] VITALS: BP 122/72
--- NOTE | 2016-07-08 08:41 | PN- Att Addend ---
Attending Addendum Attending Brief Note Covering attending note. Patient is doing well has no complaints tenderness and swelling is decreased has been switched to oral antibiotics now. Intake & Output 07/08 1600 07/08 0800 07/08 0000 Intake Total 450 Output Total 800 700 Balance -350 -700 Intake, Oral 450 Output, Urine 800 700 Current Medications Sig/Marky Start time Last Medication Dose Route Stop Time Status Admin Acetaminophen 325 MG Q6P PRN 07/03 0200 AC 07/05 PO 2233 Albuterol Sulfate 3 ML Q6P PRN 07/05 0900 DC INH Budesonide/ 2 PUF BID 07/03 1000 AC 07/07 Formoterol Fumarate INH 2118 Cefazolin Sodium 2 GM IQ8 07/04 1600 DC 07/07 N/A 1 UNIT IV 0833 Cephalexin 500 MG Q6 07/07 1800 AC 07/08 PO 0528 Cyclobenzaprine HCl 10 MG AT BEDTIME NEED.. 07/03 0330 AC 07/03 PO 2154 Enoxaparin Sodium 40 MG DAILY 07/03 1000 AC 07/07 SC 1012 Furosemide 40 MG .STK-MED ONE 07/07 1001 DC IV 07/07 1002 Furosemide 40 MG .STK-MED ONE 07/07 1000 DC IV 07/07 1001 Furosemide 20 MG ONCE ONE 07/07 0945 DC 07/07 IV 07/07 0946 1012 Furosemide 40 MG 7:30AM 07/06 0730 AC 07/08 PO 0801 Insulin Aspart 0 TIDAC 07/06 1745 AC 07/08 SC 0801 Insulin Detemir 30 UNITS BID 07/06 1000 AC 07/07 SC 2118 Lisinopril 40 MG DAILY 07/03 1000 AC 07/07 PO 1011 Metoprolol Succinate 50 MG DAILY 07/03 1000 AC 07/07 PO 1011 Montelukast Sodium 10 MG DAILY 07/03 1000 AC 07/07 PO 1011 Morphine Sulfate 2 MG Q4P PRN 07/03 0345 AC IV Polyethylene Glycol 17 GM DAILY PRN 07/07 1715 AC 07/07 PO 1844 Pravastatin Sodium 20 MG QPM 07/03 2200 AC 07/07 PO 2118 Senna/Docusate Sodium 2 TAB DAILY PRN 07/07 1715 AC 07/07 PO 1844 Vital Signs Date Time Temp Pulse Resp B/P Pulse O2 O2 Flow FiO2 Ox Delivery Rate 01/08 0600 97.9 89 18 122/72 96 Room Air 07/07 2152 98.3 87 20 127/75 95 07/07 1454 98.7 94 20 122/80 94 07/07 1011 96 118/80 07/07 1011 96 118/80 07/07 0849 96 Room Air Intake & Output 07/08 1600 07/08 0800 07/08 0000 Intake Total 450 Output Total 800 700 Balance -350 -700 Intake, Oral 450 Output, Urine 800 700 Assessment cellulitis of the right leg. Patient feels a lot better Discharge home with oral antibiotics follow-up with Dr. Ardon.
--- NOTE | 2016-07-08 08:44 | PN- Housestaff ---
Assessment/Plan Assessment: Patient is a 71-year-old male with past medical history of asthma, diabetes mellitus, renal stones status post lithotripsy, hypertension, hyperlipidemia, thoracic aorta aneurysm(stable), peripheral vascular disease presented to the ED today with chief complaint of sudden onset of fever and chills this afternoon accompanied by shortness of breath, diaphoresis and low back pain. # Sepsis most likely 2/2 cellulitis and bacteremia Vitals on arrival temperature 102, pulse 130, respiration 20. CBC significant for leukocytosis of 22.6 with a left shift. Elevated lactic acid levels. JOSE DANIEL remarkable for exquisitely tender and enlarged prostate on examination. Thus his sepsis was most attributable to prostatitis initially. Given the blood cultures growing group B strep, however, cellulitis ias deemed a more likely source of the infection. In any case, it was agreed by the urologist Dr. Garcia that there are no urological interventions warranted for the patient. Sepsis has resolved with IVF resuscitation and anmicrobial therapy. He is currently hemodynamically stable and afebrile with no signs of sepsis. * Cont to monitor for signs of infection and hemodynamic instability * Appreciate ID recs * Oxygen support and IV hydration as needed * Cont antibiotic therapy as discussed below # Cellulitis: Right foot cellulitis, chronic. Likely secondary to venous stasis. Venous doppler negative. * Cont Cefazolin 2mg IV q8H per ID rec - day 4 * May transition to Keflex 500 mg po Q6 (complete 14 day course) if cellulitis continues to improve * Cont leg elevation. * Cont home dose of Lasix 40mg PO daily * Give one time dose of IV Lasix 20mg given persistent swelling in the RLE # Bacteremia Most likely from the cellulitis in RLE. Bcx from 07/03 currently growing GBS. Patient received 2 days of vancyomycin. * Antibiotic therapy as per above-mentioned plan * Appreciate ID recs # Asthma exacerbation Patient presented with an acute onset of dyspnea. Differentials also included PE initially. No PE seen on CTA. No evidence of pneumonia. No history of heart failure. Completed steroid taper. * Keep oxygen saturations above 92% * TRC nebs [id number] * Continue Symbicort * Pancultures pending # History of renal stones s/p lithotripsy x2 * Consulted by urology, follow recs * Outpatient f/u per uro rec # Diabetes mellitus FSGs in a stable range. * Novolog SSI with accuchekcs * Cont Levemer to 30U BID (takes 80U daily at home) * Diabetic diet # Essential hypertension * c/w metoprolol, lisinopril and Lasix. # Arthritis * Tramadol & muscle relaxant. - Diabetic diet - Mild pain pathway - DVT prophylaxis subcutaneous Lovenox - Full code
[2016-07-08 09:13] VITALS: BP 124/68
--- NOTE | 2016-07-11 18:16 | Discharge Summary ---
Visit Information Visit Dates Admission Date: 07/03/16 Discharge Date: 07/08/16 Hospital Course Course Attending Physician: KEENAN ARDON MD Primary Care Physician: KEENAN ARDON MD Consulting Request: Consulting Specialty: Infectious Disease Consulting Physician: Soraya Omer MD Reason for Consult: fever or shaking chills leukocytosis Hospital Course: 71-year-old white male with many comorbidities came in after having shaking chills at home for 45 minutes also came to the emergency room fever leukocytosis or left shift in the ER had a rectal exam which was painful and originally was thought could be prostatitis. He was pancultured and started on antibiotics and was seen by infectious diseases also noted that his right leg was red and swollen indicative of the cellulitis the blood cultures came back positive for gram-positive cocci in pairs and chains final culture was beta strep group B. Patient's antibiotics were adjusted his white count slowly came down his leg slowly improved overall feeling better. Was stable enough to be discharged on July 08 finish antibiotics by mouth. Follow as an outpatient and continue monitoring his sugars which were a little high while in the hospital due to an infection Complications: None Allergies: Coded Allergies: Penicillins (HIVES 07/02/16) Pertinent Lab Results: Laboratory Tests 07/03 07/03 07/03 1050 0941 0402 Chemistry Sodium (137 - 145 mmol/L) 135 L Potassium (3.5 - 5.1 mmol/L) 4.7 Chloride (98 - 107 mmol/L) 93 L Carbon Dioxide (22 - 30 mmol/L) 25 Anion Gap (5 - 16) 16 BUN (9 - 20 mg/dL) 28 H Creatinine (0.7 - 1.2 mg/dL) 1.0 Estimated GFR (>60 ml/min) > 60 BUN/Creatinine Ratio (7 - 25 %) 28.0 H Lactic Acid (0.7 - 2.1 mmol/L) 2.9 H 4.8 H Troponin I (<0.11 ng/ml) < 0.01 Hematology CBC w Diff MAN DIFF ORDERED WBC (4.8 - 10.8 /CUMM) 27.7 H RBC (4.70 - 6.10 /CUMM) 4.85 Hgb (14.0 - 18.0 G/DL) 14.3 Hct (42 - 52 %) 43.2 MCV (80.0 - 94.0 FL) 88.9 MCH (27.0 - 31.0 PG) 29.4 RDW (11.5 - 14.5 %) 14.5 Plt Count (130 - 400 /CUMM) 256 MPV (7.4 - 10.4 FL) 9.3 Gran % (42.2 - 75.2 %) 95.2 H Lymphocytes % (20.5 - 51.1 %) 1.9 L Monocytes % (1.7 - 9.3 %) 2.9 Eosinophils % (0 - 5 %) 0 Basophils % (0.0 - 2.0 %) 0 L Absolute Granulocytes (1.4 - 6.5 /CUMM) 26.4 H Segmented Neutrophils (42.2 - 75.2 %) 82 H Band Neutrophils (0.0 - 5.0 %) 14 H Absolute Lymphocytes (1.2 - 3.4 /CUMM) 0.5 L Lymphocytes (20.5 - 51.1 %) 3 L Monocytes (1.7 - 9.3 %) 1 L Absolute Monocytes (0.10 - 0.60 /CUMM) 0.8 H Absolute Eosinophils (0.0 - 0.7 /CUMM) 0 Absolute Basophils (0.0 - 0.2 /CUMM) 0 Platelet Estimate (ADEQUATE) VERIFIED BY SMEAR Normocytic RBCs VERIFIED Normochromic RBCs VERIFIED PUBS MCHC (33.0 - 37.0 G/DL) 33.1 07/03 07/02 07/02 0354 2315 2255 Chemistry Lactic Acid (0.7 - 2.1 mmol/L) Cancelled 3.5 H Urines Urine Color (YEL,AMB,STR) YEL Urine Clarity (CLEAR) CLEAR Urine pH (5.0 - 8.0) 6.0 Ur Specific [place] (1.001 - 1.035) 1.015 Urine Protein (NEG,<30 MG/DL) NEG Urine Ketones (NEG) NEG Urine Nitrite (NEG) NEG Urine Bilirubin (NEG) NEG Urine Urobilinogen (0.1 - 1.0 EU/dl) 0.2 Ur Leukocyte Esterase (NEG) NEG Ur Microscopic SEDIMENT EXAMINED Urine RBC (0 - 5 /HPF) 1-3 Urine WBC (0 - 2 /HPF) RARE Ur Epithelial Cells (NONE,FEW) RARE Urine Hemoglobin (NEG) TRACE-LYSED H Urine Glucose (N MG/DL) 500 H 07/02 2009 Chemistry Sodium (137 - 145 mmol/L) 135 L Potassium (3.5 - 5.1 mmol/L) 4.3 Chloride (98 - 107 mmol/L) 93 L Carbon Dioxide (22 - 30 mmol/L) 26 Anion Gap (5 - 16) 16 BUN (9 - 20 mg/dL) 29 H Creatinine (0.7 - 1.2 mg/dL) 0.9 Estimated GFR (>60 ml/min) > 60 BUN/Creatinine Ratio (7 - 25 %) 32.2 H Glucose (65 - 99 mg/dL) 314 H Lactic Acid (0.7 - 2.1 mmol/L) 4.5 H Calcium (8.4 - 10.2 mg/dL) 9.4 Total Bilirubin (0.2 - 1.3 mg/dL) 0.6 AST (17 - 59 U/L) 53 ALT (21 - 72 U/L) 47 Alkaline Phosphatase (< 127 U/L) 82 Troponin I (<0.11 ng/ml) < 0.01 Fnf-B-Nqoeervwptc Pept (<125 pg/mL) 59.4 Total Protein (6.3 - 8.2 g/dL) 7.9 Albumin (3.5 - 5.0 g/dL) 4.3 Globulin (1.9 - 4.2 gm/dL) 3.6 Albumin/Globulin Ratio (1.1 - 2.2 %) 1.2 Amylase (30 - 110 U/L) 71 Lipase (23 - 300 U/L) 414 H Coagulation PT (9.4 - 12.5 SEC) 11.7 INR (0.90 - 1.17) 1.12 APTT (25 - 37 SEC) 23 L D-Dimer (70 - 232 ng/ml) 358 H Hematology CBC w Diff MAN DIFF ORDERED WBC (4.8 - 10.8 /CUMM) 22.6 H RBC (4.70 - 6.10 /CUMM) 5.13 Hgb (14.0 - 18.0 G/DL) 15.2 Hct (42 - 52 %) 45.7 MCV (80.0 - 94.0 FL) 88.9 MCH (27.0 - 31.0 PG) 29.6 RDW (11.5 - 14.5 %) 14.6 H Plt Count (130 - 400 /CUMM) 284 MPV (7.4 - 10.4 FL) 8.4 Gran % (42.2 - 75.2 %) 91.2 H Lymphocytes % (20.5 - 51.1 %) 6.9 L Monocytes % (1.7 - 9.3 %) 0.9 L Eosinophils % (0 - 5 %) 0.9 Basophils % (0.0 - 2.0 %) 0.1 Absolute Granulocytes (1.4 - 6.5 /CUMM) 20.6 H Segmented Neutrophils (42.2 - 75.2 %) 86 H Band Neutrophils (0.0 - 5.0 %) 5 Absolute Lymphocytes (1.2 - 3.4 /CUMM) 1.6 Lymphocytes (20.5 - 51.1 %) 5 L Monocytes (1.7 - 9.3 %) 1 L Absolute Monocytes (0.10 - 0.60 /CUMM) 0.2 Eosinophils (0 - 5.0 %) 2 Absolute Eosinophils (0.0 - 0.7 /CUMM) 0.2 Basophils (0.0 - 2.0 %) 1 Absolute Basophils (0.0 - 0.2 /CUMM) 0 Platelet Estimate (ADEQUATE) VERIFIED BY SMEAR Normocytic RBCs VERIFIED Normochromic RBCs VERIFIED PUBS MCHC (33.0 - 37.0 G/DL) 33.3 Other Body Source Fld Total RBCs Counted (%) 100 07/04/16 0700: Anion Gap 16, Estimated GFR > 60, BUN/Creatinine Ratio 34.4 H, CBC w Diff NO MAN DIFF REQ, RBC 4.70, MCV 88.2, MCH 29.5, RDW 15.4 H, MPV 9.3, Gran % 91.9 H , Lymphocytes % 3.4 L, Monocytes % 4.5, Eosinophils % 0, Basophils % 0.2, Absolute Granulocytes 22.9 H, Absolute Lymphocytes 0.8 L, Absolute Monocytes 1.1 H, Absolute Eosinophils 0, Absolute Basophils 0.1, PUBS MCHC 33.4 07/03/16 2145: Troponin I < 0.01 07/03/16 2145: Lactic Acid 1.8 07/05/16 0751: Anion Gap 13, Estimated GFR > 60, BUN/Creatinine Ratio 31.1 H, CBC w Diff NO MAN DIFF REQ, RBC 5.09, MCV 87.8, MCH 29.8, RDW 14.6 H, MPV 8.4, Gran % 87.0 H , Lymphocytes % 7.2 L, Monocytes % 5.7, Eosinophils % 0.1, Basophils % 0 L, Absolute Granulocytes 17.5 H, Absolute Lymphocytes 1.5, Absolute Monocytes 1.1 H, Absolute Eosinophils 0, Absolute Basophils 0, PUBS MCHC 34.0 07/06/1615: CBC w Diff NO MAN DIFF REQ, RBC 5.17, MCV 88.2, MCH 29.6, RDW 14.6 H, MPV 8.9, Gran % 80.7 H, Lymphocytes % 12.7 L, Monocytes % 6.1, Eosinophils % 0.2, Basophils % 0.3, Absolute Granulocytes 11.2 H, Absolute Lymphocytes 1.8, Absolute Monocytes 0.8 H, Absolute Eosinophils 0, Absolute Basophils 0, PUBS MCHC 33.5 Laboratory Tests 07/07 0618 Chemistry Sodium (137 - 145 mmol/L) 134 L Potassium (3.5 - 5.1 mmol/L) 5.0 Chloride (98 - 107 mmol/L) 92 L Carbon Dioxide (22 - 30 mmol/L) 27 Anion Gap (5 - 16) 15 BUN (9 - 20 mg/dL) 27 H Creatinine (0.7 - 1.2 mg/dL) 0.9 Estimated GFR (>60 ml/min) > 60 BUN/Creatinine Ratio (7 - 25 %) 30.0 H Hematology CBC w Diff NO MAN DIFF REQ WBC (4.8 - 10.8 /CUMM) 11.5 H RBC (4.70 - 6.10 /CUMM) 5.67 Hgb (14.0 - 18.0 G/DL) 16.6 Hct (42 - 52 %) 49.8 MCV (80.0 - 94.0 FL) 87.8 MCH (27.0 - 31.0 PG) 29.2 RDW (11.5 - 14.5 %) 14.3 Plt Count (130 - 400 /CUMM) 310 MPV (7.4 - 10.4 FL) 8.6 Gran % (42.2 - 75.2 %) 70.6 Lymphocytes % (20.5 - 51.1 %) 18.7 L Monocytes % (1.7 - 9.3 %) 9.0 Eosinophils % (0 - 5 %) 1.4 Basophils % (0.0 - 2.0 %) 0.3 Absolute Granulocytes (1.4 - 6.5 /CUMM) 8.1 H Absolute Lymphocytes (1.2 - 3.4 /CUMM) 2.2 Absolute Monocytes (0.10 - 0.60 /CUMM) 1.0 H Absolute Eosinophils (0.0 - 0.7 /CUMM) 0.2 Absolute Basophils (0.0 - 0.2 /CUMM) 0 PUBS MCHC (33.0 - 37.0 G/DL) 33.3 Disposition Summary Disposition Principal Diagnosis: Fever with shaking chills sepsis cellulitis of the right leg Additional Diagnosis: Asthma Diabetes mellitus 2 Kidney stones Hypertension Hyperlipidemia Peripheral vascular disease Discharge Disposition: home or self care Discharge Instructions General Discharge Information Code Status: Full Code Patient's Diet: Diabetic health a hard Patient's Activity: As tolerated Follow-Up Instructions/Appts: Follow-up with Dr. Ardon, staff educator and vascular specialist Medications at Discharge Discharge Medications: Stop taking the following medications: Amoxicillin/Potassium Clav (Augmentin XR 1,000-62.5 Tab) 1,000 MG-62.5 MG TAB.ER.12H ORAL As Directed Qty = 2 Continue taking these medications: Insulin Degludec (Tresiba Flextouch U-200) 200 UNIT/ML (3 ML) INSULN.PEN 80 Units Inject into fatty tissue Every Morning Qty = 9 Comments: NOT GIVEN IN HOSPITAL Liraglutide (Victoza 3-Temo) 0.6 MG/0.1 ML (18 MG/3 ML) PEN.INJCTR 1.8 Milligram Inject into fatty tissue DAILY Qty = 27 Comments: NOT GIVEN IN HOSPITAL Metformin HCl (Metformin HCl) 1,000 MG TABLET 1 Tablet ORAL TWICE DAILY Qty = 60 Comments: NOT GIVEN IN HOSPTIAL. COVERED WITH INSULIN Lisinopril (Lisinopril) 40 MG TABLET 1 Tablet ORAL DAILY Qty = 30 Comments: Last Taken:07/08/16 Time:9:15 AM Metoprolol Succinate (Metoprolol Succinate) 50 MG TAB.ER.24H 1 Tablet ORAL DAILY Qty = 30 Comments: Last Taken:07/08/16 Time:9:15 AM Pravastatin Sodium (Pravastatin Sodium) 20 MG TABLET 1 Tablet ORAL Every night Qty = 30 Comments: Last Taken:07/07/16 Time:9 PM Furosemide (Furosemide) 40 MG TABLET 1 Tablet ORAL DAILY Qty = 30 Comments: Last Taken:07/08/16 Time:9 AM Mv-Mn/FA/Vit K1/Lycop/Lut/Zeax (Ocuvite Eye + Multi Tablet) 200 MCG-15 MCG-150 MCG-5 MG-1 MG TABLET 1 Tablet ORAL DAILY Comments: NOT GIVEN IN HOSPITAL Cyclobenzaprine HCl (Cyclobenzaprine HCl) 10 MG TABLET 1 Tablet ORAL Every night as needed for MUSCLE RELAXER Qty = 30 Comments: Last Taken:07/03/16 Time:10:00 PM Budesonide/Formoterol Fumarate (Symbicort 160-4.5 Mcg Inhaler) 160 MCG-4.5 MCG/ ACTUATION HFA.AER.AD 2 Puff Inhale through mouth TWICE DAILY Qty = 10 Comments: Last Taken:07/08/16 Time:9:15 Montelukast Sodium (Montelukast Sodium) 10 MG TABLET 1 Tablet ORAL DAILY Qty = 30 Comments: Last Taken:07/08/16 Time:9:15 AM Sildenafil Citrate (Viagra) 100 MG TABLET 1 Tablet ORAL as needed for ED Instructions: 1 hour before sexual activity Comments: NOT GIVEN IN HOSPITAL Insulin Aspart, Recombinant (Novolog Flexpen) 100 UNIT/ML INSULN.PEN Units Inject into fatty tissue 3 TIMES DAILY BEFORE MEALS Qty = 15 Comments: PER PT Start taking the following new medications: Cephalexin (Cephalexin) 500 MG CAPSULE 500 Milligram ORAL EVERY SIX HOURS Days = 8 No Refills Instructions: STOP AFTER LAST DOSE ON 07/15/16. Comments: Last Taken:07/08/16 Time:5:30 AM Copies To: CHRIS ARTEAGA,ERIK Olsen; PABLITO ARTEAGA,SORAYA Frost; KEENAN ARDON MD Attending Review Statement Documenting Attending: KEENAN ARDON MD
== END 2016-07-08 12:10 | DRG 872 ==
LOC: ERH 19:49 → ERHI 07-03 → 2NA 07-03
PROVIDERS: Physician Assistant; Student in an Organized Health Care Education/Training Program; ADMIT Internal Medicine
DX: A41.9 Sepsis, unspecified organism (principal); I71.2 Thoracic aortic aneurysm, without rupture; N13.2 Hydronephrosis with renal and ureteral calculous obstruction; Z68.42 Body mass index [BMI] 45.0-49.9, adult; N41.0 Acute prostatitis; L03.115 Cellulitis of right lower limb; E66.9 Obesity, unspecified; I87.8 Other specified disorders of veins; J45.909 Unspecified asthma, uncomplicated; E11.9 Type 2 diabetes mellitus without complications; Z79.4 Long term (current) use of insulin; I10 Essential (primary) hypertension; E78.5 Hyperlipidemia, unspecified; I73.9 Peripheral vascular disease, unspecified
CPT/HCPCS: 2NASP; 36415; 74175; 81001; 82436; 87040; 87070; 87086; 87147; 87804; 87804-59; 93005; 93010; 93970; 96361; 96374; 96375; 99291; J0131; J0456; J0690; J0696; J1650; J1815; J1885; J1940; J2920; J2930; J3370; J3490; J7040; J7042